=== PATIENT | male | born 1965 | race American Indian/Alaskan Native ===

== ENCOUNTER 2025-01-05 13:34 | Outpatient (CLI) | payer MEDICAID, SELFPAY ==
[2025-01-05 11:33] LABS: Estimated GFR 64.07 (mL/min/1.73m2)
== END 2025-01-05 13:35 | disposition home or self-care (01) ==
LOC: LBO 13:36
PROVIDERS: Visit Provider Radiology Radiation Oncology
DX: C09.9 Malignant neoplasm of tonsil, unspecified (principal)
CPT/HCPCS: 36415; 82565

== ENCOUNTER 2025-01-19 11:27 | Outpatient (CLI) | payer MEDICAID, SELFPAY ==
[2025-01-19 10:25] LABS: Abs Immature Grans 0.02 10^3/uL (0.0-0.06); HCT 47.7 % (40.0-50.0); HGB 16.4 g/dL (13.5-17.5); Immature Grans % 0.3 %; MCH 30.3 pg (27.0-33.0); MCHC 34.4 % (32.0-36.0); MCV 88 fL (80-95); MPV 11.4 fL (8.0-11.0); Platelet Count 161 10^3/uL (130-400); RBC 5.42 10^6/uL (4.36-5.78); RDW 12.4 % (11.8-14.1); RDW-SD 40.0 fL; WBC 5.83 10^3/uL (4.4-10.8)
[2025-01-19 10:37] LABS: Magnesium 2.3 mg/dL (1.8-2.4)
[2025-01-19 10:41] LABS: ALT 76 U/L (16-63); AST 35 U/L (15-37); Albumin 4.1 g/dL (3.4-5.0); Alkaline Phosphatase 129 U/L (46-116); Anion Gap 5.7 mmol/L (3-11); BUN 17 mg/dL (7-18); Bilirubin, Total 0.7 mg/dL (0.2-1.0); CO2 33.3 mmol/L (21.0-32.0); Calcium 9.7 mg/dL (8.5-10.1); Chloride 100 mmol/L (98-107); Estimated GFR 64.07 (mL/min/1.73m2); Glucose 123 mg/dL (74-106); Potassium 4.7 mmol/L (3.5-5.1); Sodium 139 mmol/L (136-145); Total Protein 7.8 g/dL (6.4-8.2)
== END 2025-01-19 11:28 | disposition home or self-care (01) ==
LOC: LBO 11:28
PROVIDERS: Visit Provider Internal Medicine Hematology
DX: C09.9 Malignant neoplasm of tonsil, unspecified (principal)
CPT/HCPCS: 36415; 80053; 83735; 85025

== ENCOUNTER 2025-01-26 12:36 | Outpatient (REF) | payer MEDICAID, SELFPAY ==
[2025-01-26 12:48] LABS: Abs Immature Grans 0.05 10^3/uL (0.0-0.06); HCT 46.7 % (40.0-50.0); HGB 16.5 g/dL (13.5-17.5); Immature Grans % 0.6 %; MCH 30.3 pg (27.0-33.0); MCHC 35.3 % (32.0-36.0); MCV 86 fL (80-95); MPV 12.5 fL (8.0-11.0); Platelet Count 177 10^3/uL (130-400); RBC 5.44 10^6/uL (4.36-5.78); RDW 12.3 % (11.8-14.1); RDW-SD 38.6 fL; WBC 7.88 10^3/uL (4.4-10.8)
[2025-01-26 13:12] LABS: ALT 94 U/L (16-63); AST 29 U/L (15-37); Albumin 4.0 g/dL (3.4-5.0); Alkaline Phosphatase 135 U/L (46-116); Anion Gap 9.4 mmol/L (3-11); BUN 21 mg/dL (7-18); Bilirubin, Total 0.9 mg/dL (0.2-1.0); CO2 28.6 mmol/L (21.0-32.0); Calcium 9.5 mg/dL (8.5-10.1); Chloride 100 mmol/L (98-107); Estimated GFR 78.30 (mL/min/1.73m2); Glucose 119 mg/dL (74-106); Magnesium 2.0 mg/dL (1.8-2.4); Potassium 3.7 mmol/L (3.5-5.1); Sodium 138 mmol/L (136-145); Total Protein 7.7 g/dL (6.4-8.2)
== END 2025-01-26 12:37 | disposition home or self-care (01) ==
LOC: LBN 12:36
PROVIDERS: Visit Provider Nurse Practitioner
DX: C09.9 Malignant neoplasm of tonsil, unspecified (principal); Z79.899 Other long term (current) drug therapy; K59.00 Constipation, unspecified; G89.3 Neoplasm related pain (acute) (chronic); R13.10 Dysphagia, unspecified
CPT/HCPCS: 80053; 83735; 85025

== ENCOUNTER 2025-03-02 03:47 | Outpatient (RCR) | payer MEDICAID, SELFPAY ==
[2025-02-03] MEDS: Normal Saline Flush 10 ML SYR IVP (09:19)
[2025-02-03 10:01] LABS: Abs Immature Grans 0.03 10^3/uL (0.0-0.06); HCT 42.5 % (40.0-50.0); HGB 14.8 g/dL (13.5-17.5); Immature Grans % 0.4 %; MCH 30.3 pg (27.0-33.0); MCHC 34.8 % (32.0-36.0); MCV 87 fL (80-95); MPV 12.5 fL (8.0-11.0); Platelet Count 137 10^3/uL (130-400); RBC 4.89 10^6/uL (4.36-5.78); RDW 12.2 % (11.8-14.1); RDW-SD 38.8 fL; WBC 8.03 10^3/uL (4.4-10.8)
[2025-02-03 10:24] LABS: ALT 113 U/L (16-63); AST 29 U/L (15-37); Albumin 3.7 g/dL (3.4-5.0); Alkaline Phosphatase 140 U/L (46-116); Anion Gap 7.3 mmol/L (3-11); BUN 15 mg/dL (7-18); Bilirubin, Total 0.9 mg/dL (0.2-1.0); CO2 29.7 mmol/L (21.0-32.0); Calcium 9.4 mg/dL (8.5-10.1); Chloride 101 mmol/L (98-107); Estimated GFR 78.30 (mL/min/1.73m2); Glucose 123 mg/dL (74-106); Magnesium 2.0 mg/dL (1.8-2.4); Potassium 4.0 mmol/L (3.5-5.1); Sodium 138 mmol/L (136-145); Total Protein 7.5 g/dL (6.4-8.2)
[2025-02-09] MEDS: Normal Saline Flush 10 ML SYR IVP (11:27)
[2025-02-09 11:32] LABS: Abs Immature Grans 0.02 10^3/uL (0.0-0.06); HCT 38.4 % (40.0-50.0); HGB 13.7 g/dL (13.5-17.5); Immature Grans % 0.4 %; MCH 30.6 pg (27.0-33.0); MCHC 35.7 % (32.0-36.0); MCV 86 fL (80-95); MPV 12.2 fL (8.0-11.0); Platelet Count 151 10^3/uL (130-400); RBC 4.48 10^6/uL (4.36-5.78); RDW 12.3 % (11.8-14.1); RDW-SD 37.8 fL; WBC 5.02 10^3/uL (4.4-10.8)
[2025-02-09 11:52] LABS: ALT 241 U/L (16-63); AST 58 U/L (15-37); Albumin 3.9 g/dL (3.4-5.0); Alkaline Phosphatase 135 U/L (46-116); Anion Gap 9.3 mmol/L (3-11); BUN 20 mg/dL (7-18); Bilirubin, Total 1.1 mg/dL (0.2-1.0); CO2 27.7 mmol/L (21.0-32.0); Calcium 9.4 mg/dL (8.5-10.1); Chloride 104 mmol/L (98-107); Estimated GFR 78.30 (mL/min/1.73m2); Glucose 112 mg/dL (74-106); Magnesium 2.0 mg/dL (1.8-2.4); Potassium 3.5 mmol/L (3.5-5.1); Sodium 141 mmol/L (136-145); Total Protein 7.5 g/dL (6.4-8.2)
[2025-02-11] MEDS: Normal Saline Flush 10 ML SYR IVP (10:20)
[2025-02-11 10:40] LABS: ALT 166 U/L (16-63); AST 39 U/L (15-37); Albumin 3.6 g/dL (3.4-5.0); Alkaline Phosphatase 134 U/L (46-116); Anion Gap 7.7 mmol/L (3-11); BUN 13 mg/dL (7-18); Bilirubin, Total 0.8 mg/dL (0.2-1.0); CO2 28.3 mmol/L (21.0-32.0); Calcium 9.1 mg/dL (8.5-10.1); Chloride 103 mmol/L (98-107); Estimated GFR 87.78 (mL/min/1.73m2); Glucose 185 mg/dL (74-106); Potassium 3.3 mmol/L (3.5-5.1); Sodium 139 mmol/L (136-145); Total Protein 7.0 g/dL (6.4-8.2)
[2025-02-11 12:41] LABS: Magnesium 1.9 mg/dL (1.8-2.4)
[2025-02-16] MEDS: Normal Saline Flush 10 ML SYR IVP (10:47)
[2025-02-16 11:23] LABS: Abs Immature Grans 0.02 10^3/uL (0.0-0.06); HCT 35.6 % (40.0-50.0); HGB 13.0 g/dL (13.5-17.5); Immature Grans % 0.4 %; MCH 31.6 pg (27.0-33.0); MCHC 36.5 % (32.0-36.0); MCV 86 fL (80-95); MPV 12.4 fL (8.0-11.0); Platelet Count 126 10^3/uL (130-400); RBC 4.12 10^6/uL (4.36-5.78); RDW 13.2 % (11.8-14.1); RDW-SD 38.6 fL; WBC 4.49 10^3/uL (4.4-10.8)
[2025-02-16 11:41] LABS: ALT 96 U/L (16-63); AST 26 U/L (15-37); Albumin 3.6 g/dL (3.4-5.0); Alkaline Phosphatase 142 U/L (46-116); Anion Gap 13.4 mmol/L (3-11); BUN 19 mg/dL (7-18); Bilirubin, Total 0.7 mg/dL (0.2-1.0); CO2 25.6 mmol/L (21.0-32.0); Calcium 9.5 mg/dL (8.5-10.1); Chloride 100 mmol/L (98-107); Estimated GFR 78.30 (mL/min/1.73m2); Glucose 226 mg/dL (74-106); Magnesium 1.9 mg/dL (1.8-2.4); Potassium 3.6 mmol/L (3.5-5.1); Sodium 139 mmol/L (136-145); Total Protein 7.3 g/dL (6.4-8.2)
[2025-02-23] MEDS: Normal Saline Flush 10 ML SYR IVP (10:38)
[2025-02-23 10:55] LABS: Abs Immature Grans 0.03 10^3/uL (0.0-0.06); HCT 39.0 % (40.0-50.0); HGB 14.0 g/dL (13.5-17.5); Immature Grans % 0.9 %; MCH 31.0 pg (27.0-33.0); MCHC 35.9 % (32.0-36.0); MCV 87 fL (80-95); MPV 12.2 fL (8.0-11.0); Platelet Count 126 10^3/uL (130-400); RBC 4.51 10^6/uL (4.36-5.78); RDW 13.6 % (11.8-14.1); RDW-SD 41.2 fL; WBC 3.37 10^3/uL (4.4-10.8)
[2025-02-23 11:22] LABS: ALT 384 U/L (16-63); AST 79 U/L (15-37); Albumin 3.7 g/dL (3.4-5.0); Alkaline Phosphatase 156 U/L (46-116); Anion Gap 9.0 mmol/L (3-11); BUN 24 mg/dL (7-18); Bilirubin, Total 1.0 mg/dL (0.2-1.0); CO2 28.0 mmol/L (21.0-32.0); Calcium 9.2 mg/dL (8.5-10.1); Chloride 98 mmol/L (98-107); Estimated GFR 78.30 (mL/min/1.73m2); Glucose 217 mg/dL (74-106); Magnesium 1.7 mg/dL (1.8-2.4); Potassium 3.4 mmol/L (3.5-5.1); Sodium 135 mmol/L (136-145); Total Protein 7.2 g/dL (6.4-8.2)
[2025-03-02 10:39] LABS: Abs Immature Grans 0.04 10^3/uL (0.0-0.06); HCT 35.7 % (40.0-50.0); HGB 12.6 g/dL (13.5-17.5); Immature Grans % 0.7 %; MCH 30.7 pg (27.0-33.0); MCHC 35.3 % (32.0-36.0); MCV 87 fL (80-95); MPV 11.7 fL (8.0-11.0); RBC 4.10 10^6/uL (4.36-5.78); RDW 14.9 % (11.8-14.1); RDW-SD 42.9 fL; WBC 6.05 10^3/uL (4.4-10.8)
[2025-03-02] MEDS: Normal Saline Flush 10 ML SYR IVP (10:49)
[2025-03-02 10:52] LABS: Platelet Count 94 10^3/uL (130-400)
[2025-03-02 11:08] LABS: ALT 384 U/L (16-63); AST 62 U/L (15-37); Albumin 3.5 g/dL (3.4-5.0); Alkaline Phosphatase 158 U/L (46-116); Anion Gap 7.5 mmol/L (3-11); BUN 22 mg/dL (7-18); Bilirubin, Total 1.1 mg/dL (0.2-1.0); CO2 30.5 mmol/L (21.0-32.0); Calcium 8.6 mg/dL (8.5-10.1); Chloride 100 mmol/L (98-107); Estimated GFR 87.78 (mL/min/1.73m2); Glucose 187 mg/dL (74-106); Magnesium 1.8 mg/dL (1.8-2.4); Potassium 3.6 mmol/L (3.5-5.1); Sodium 138 mmol/L (136-145); Total Protein 6.8 g/dL (6.4-8.2)
== END 2025-03-03 23:59 | disposition home or self-care (01) ==
LOC: INF 03:47
PROVIDERS: Visit Provider Nurse Practitioner
DX: C09.9 Malignant neoplasm of tonsil, unspecified (principal); Z79.899 Other long term (current) drug therapy; K59.00 Constipation, unspecified; G89.3 Neoplasm related pain (acute) (chronic); R13.0 Aphagia
CPT/HCPCS: 36591; 80053; 83735; 85025

== ENCOUNTER 2025-03-16 09:50 | Inpatient (IN) | payer MEDICAID, SELFPAY ==
[2025-03-16] VITALS (27 sets, daily range): BP systolic 94–138; BP diastolic 42–80; PULSE 74–105; RESP 12–26; TEMP 36.3–36.9; O2SAT 99–100
--- NOTE | 2025-03-16 09:45 | RT.EKG_ITS ---
APPROVED REPORT Exam: Resting ECG Reason for Exam: Seizure Patient Location: E HR:88 bpm ECG Measurements Heart Rate 88 AXIS IA 137 P 58 QRSd 77 QRS 57 QT 325 T 23 QTc 394 Conclusion Sinus rhythm...normal P axis, V-rate 60- 99 No Occlusion IN
--- NOTE | 2025-03-16 09:53 | W.ED.GENAD ---
Discharge Plan Disposition Patient Disposition: Admit to [facility] Discharge Details Clinical Impression: Nausea & vomiting, Hyperbilirubinemia, Elevated LFTs, Increased anion gap metabolic acidosis, Elevated BUN, Hypoalbuminemia, Convulsions Primary Care Provider: Unknown,Unknown ED Provider: Dk Dye [place] Meds and New Rx's Prescriptions: No Action bupropion HCl [Wellbutrin XL] 150 mg tablet extended release 24 hr 150 mg PO DAILY potassium chloride 20 mEq/15 mL liquid 20 meq PO DAILY Patient Comments: TAKE 15 ML ONCE DAILY BY PER G TUBE cholecalciferol (vitamin D3) [Pediatric D-Srinivas] 10 mcg/mL (400 unit/mL) drops 400 unit PO DAILY Patient Comments: USE 1 DROP VIA FEEDING TUBE DAILY amlodipine 5 mg tablet 5 mg PO DAILY Patient Comments: TAKE 1 TABLET BY MOUTH ONCE DAILY ibuprofen [IBU] 800 mg tablet 800 mg PO Q6H oxycodone 5 mg tablet 5 mg PO Q6H Patient Comments: TAKE 1 TABLET BY MOUTH EVERY 6 HOURS NEEDED FOR PAIN (FOR BREAKTHROUGH PAIN. TAKE BY MOUTH OR CRUSH AND ADMINISTER PER G-TUBE AND FLUSH.) ondansetron HCl 4 mg tablet 4 mg PO Q8H PRN Patient Comments: TAKE 1 TABLET BY MOUTH EVERY 8 HOURS NEEDED FOR NAUSEA atorvastatin 10 mg tablet 10 mg PO QPM Patient Comments: TAKE 1 TABLET BY MOUTH ONCE DAILY amitriptyline 10 mg tablet 25 mg PO HS Patient Comments: TAKE 2 TABLETS BY MOUTH ONCE DAILY AT BEDTIME prochlorperazine maleate 10 mg tablet 10 mg PO Q6H Patient Comments: TAKE 1 TABLET BY MOUTH EVERY 6 HOURS NEEDED Nurtec ODT 75 mg tablet,disintegrating 75 mg PO Q OTHER DAY pregabalin [Lyrica] 20 mg/mL solution 50 mg PO TID Patient Comments: TAKE 2 1/2 (ONE-HALF) ML THREE TIMES DAILY VIA FEEDING TUBE omeprazole 20 mg capsule,delayed release(DR/EC) 20 mg PO DAILY Patient Comments: TAKE 1 CAPSULE BY MOUTH ONCE DAILY prazosin 2 mg capsule 2 mg PO HS Patient Comments: TAKE 1 CAPSULE BY MOUTH IN THE EVENING aspirin [Adult Low Dose Aspirin] 81 mg PO DAILY HPI General Date/Time Provider Initiated Documentation: 03/16/25 09:53. HPI Narrative: MDM This is an uncomfortable appearing normothermic and not tachycardic 59-year-old male with history of head and neck cancer with tonic-clonic activity concerning for possibility of seizure versus dysrhythmia for which patient will undergo CT head and troponin testing in the emergency department. ECG showing narrow complex normal sinus rhythm at a rate of 88. Normal axis. Intervals within normal limits. No acute injury pattern. No prior for comparison. Patient has no pain out of proportion to suggest necrotizing soft tissue infection. He does have epigastric tenderness but is not a drinker however will obtain lipase to assess for pancreatitis. He also could have duodenitis given PEG tube. He is not septic so I did not draw blood cultures nor treat empirically with broad-spectrum antibiotics nor assess lactate. Given PEG tube my suspicion for mesenteric ischemia is low as I do not feel patient required assessment of lactate. He has no signs of surgical site infection at his peg tube at the moment. He has no rash to stomach to suggest zoster. No right upper quadrant tenderness to suggest acute cholecystitis. No right lower quadrant tenderness to suggest appendicitis. No pulsatile masses to suggest ruptured AAA. No shortness of breath to suggest PE so I did not feel that the patient required an angiogram of his chest. He had no loss of bowel or bladder control and no tongue biting so my suspicion was low for seizure. Nonetheless given history of head and neck cancer we will obtain a CT scan of his head and neck with IV contrast to assess for any metastatic disease. He has no focal neurological deficits to suggest acute CVA so I do not feel he would be a candidate for TNK. Will prophylax with antiseizure medications using 1.5 g levetiracetam. 11:53 AM Normal INR. Initial reassuring troponin. Comprehensive metabolic panel showing no KRYSTAL. Mildly elevated BUN mildly elevated anion gap but normal bicarbonate??not consistent with DKA. Mild hyperbilirubinemia slightly worse compared to prior. Mildly elevated LFTs improved compared to prior. Given likely need for hospitalization will defer acute hepatitis panel to inpatient team. Mild hypoalbuminemia. Normal calcium. Normal reassuring lipase. Very mild hypomagnesemia. CBC with normocytic anemia slightly worse compared to prior. Mild leukopenia worse compared to prior. Resolved thrombocytopenia. 1:41 PM Reassuring repeat troponin. CT scan of abdomen pelvis showed no acute abnormalities. PEG tube appears to be in acceptable position. Reassuring normal CT head. Patient did have an episode in the emergency department where he transiently became unresponsive for approximately 25 seconds. His eyes rolled to the back of his head. He had some upper extremity myoclonic jerking. He subsequently began following commands including squeezing hands. Given my low suspicion for seizure I did not feel that he required antiseizure medications. 3:15 PM Given his hypomagnesemia I added on a phosphate level to the assess for possibility of refeeding syndrome. I was in touch with physical therapy and they were planning on seeing the patient tomorrow. Will reach out to the hospitalist team for hospitalization request. 3:45 PM I was called to the patient's room. He had a subsequent episode of myoclonic jerking with his eyes rolled back in his stretcher. This lasted approximately 30 seconds. I ordered him 2 mg of lorazepam. Of note he has recently had an EEG. He was diagnosed with psychogenic nonepileptic seizure. 3:56 PM I was in touch with Dr. Nuñez who graciously agreed to accept the patient for hospitalization. Phosphate level within normal limits. HPI This is a male with a history of head and neck cancer presenting with abdominal pain, nausea, vomiting, and seizure. The patient was diagnosed with head and neck cancer 3 months ago and has been undergoing radiation therapy, with his last session scheduled for today. However, he presented with severe discomfort, including abdominal pain around his PEG tube, nausea, and vomiting. The pain is so intense that even slight touch near the PEG tube causes significant discomfort. His primary complaints are abdominal pain, nausea, and vomiting. He reports no chest pain or breathing difficulties. He was discharged from the hospital on 03/14/2025 after being admitted for severe abdominal pain. During his hospital stay, it was discovered that the tube connecting his stomach to the small intestine was inflamed, and he had low magnesium and potassium levels. He received IV fluids, Dilaudid, and magnesium supplements. A scope revealed multiple ulcers in his stomach, and he was advised to take omeprazole twice daily to manage acidity. However, upon discharge, he was only given Tylenol. His last feed was on 03/14/2025 while he was still in the hospital. Despite these symptoms, he was scheduled for radiation today. While assessing his condition, he experienced a tonic-clonic seizure, characterized by his eyes rolling back for 1 to 2 minutes, as observed by the staff. Upon arrival, he appeared alert with no significant postictal period. 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 His vital signs have remained stable throughout this period. Prior to today's episode, he felt lightheaded, weak, and dizzy. Exam General: Well-appearing in no acute distress speaking in complete sentences. Head: Normocephalic, atraumatic. Eye: Extraocular eye movements intact. No conjunctival injection. No scleral icterus. Ear, nose, mouth, throat: Grossly normal inspection. Normal voice, handling secretions normally. Neck: Trachea midline. Well-healing surgical scar right side of neck. Cardiovascular: Well-perfused distal extremities. Regular rate and rhythm. Respiratory: Nonlabored respiration. Clear lungs bilaterally. Gastrointestinal: Nondistended abdomen. PEG tube left upper quadrant. No signs of irritation or erythema at PEG tube site. Patient does have epigastric tenderness at site of tube insertion. No rebound. No guarding. Bilateral lower quadrants nontender no rebound no guarding. Musculoskeletal: No edema. Moving all 4 extremities spontaneously. Skin: Normal for age and race, grossly normal temperature and turgor. No acute rash. Neurologic: Alert and appropriate, no apparent acute deficits. GCS 15. Cranial nerves II through XII intact grossly. 5 out of 5 bilateral upper and lower extremity strength. Related Data Home Medications ?Medication ?Instructions ?Recorded ?Confirmed amitriptyline 10 mg tablet 25 mg PO HS 03/16/25 03/16/25 amlodipine 5 mg tablet 5 mg PO DAILY 03/16/25 03/16/25 aspirin 81 mg PO DAILY 03/16/25 03/16/25 atorvastatin 10 mg tablet 10 mg PO QPM 03/16/25 03/16/25 bupropion HCl 150 mg 24 hr tablet, 150 mg PO DAILY 03/16/25 03/16/25 extended release (Wellbutrin XL) cholecalciferol (vitamin D3) 10 400 unit PO DAILY 03/16/25 03/16/25 mcg/mL (400 unit/mL) oral drops (Pediatric D-Srinivas) ibuprofen 800 mg tablet (IBU) 800 mg PO Q6H 03/16/25 03/16/25 omeprazole 20 mg capsule,delayed 20 mg PO DAILY 03/16/25 03/16/25 release ondansetron HCl 4 mg tablet 4 mg PO Q8H PRN 03/16/25 03/16/25 oxycodone 5 mg tablet 5 mg PO Q6H 03/16/25 03/16/25 potassium chloride 20 mEq/15 mL 20 meq PO DAILY 03/16/25 03/16/25 oral liquid prazosin 2 mg capsule 2 mg PO HS 03/16/25 03/16/25 pregabalin 20 mg/mL oral solution 50 mg PO TID 03/16/25 03/16/25 (Lyrica) prochlorperazine maleate 10 mg 10 mg PO Q6H 03/16/25 03/16/25 tablet rimegepant 75 mg disintegrating 75 mg PO Q OTHER DAY 03/16/25 03/16/25 tablet (Nurtec ODT) Allergies Allergy/AdvReac Type Severity Reaction Status Date / Time morphine Allergy Severe Anaphylaxis Verified 03/16/25 11:06 ferro AdvReac Intermediate rash Verified 03/16/25 11:09 hydrocodone (From Vicodin) AdvReac Intermediate Nausea Verified 03/16/25 11:09 PFSH All Active Problems (Updated 03/16/25 @ 15:47 by Dk Dye MD) Convulsions (Acute) Hypoalbuminemia (Acute) Elevated BUN (Acute) Increased anion gap metabolic acidosis (Acute) Elevated LFTs (Acute) Hyperbilirubinemia (Acute) Nausea & vomiting (Acute) Social History Smoking/Tobacco Use Status: Never Smoking risk assessment performed?: Yes Alcohol Intake: never
--- NOTE | 2025-03-16 10:00 | DI.RAD_ITS ---
Exam(s) XR CHEST 2V PA LATERAL EXAM: XR CHEST 2V PA LATERAL CLINICAL HISTORY: Cough TECHNIQUE: 2D digital imaging was performed. Two views. COMPARISON: No exams were available for comparison FINDINGS: HEART: Normal size. Coronary artery stent. Aorta: Not dilated. PULMONARY VASCULATURE: Normal. MEDIASTINUM: Unremarkable. LUNGS: Clear. PLEURAL SPACE: No pleural effusion or pneumothorax. BONE:Unremarkable for age. SOFT TISSUES: Port over right upper chest. IMPRESSION: No acute abnormality. DATA REPOSITORY: RADIATION DOSE DELIVERED:
[2025-03-16] MEDS: Ondansetron 4 MG/2 ML VIAL IVP (10:50)
[2025-03-16 11:12] LABS: Abs Immature Grans 0.04 10^3/uL (0.0-0.06); HCT 33.2 % (40.0-50.0); HGB 11.2 g/dL (13.5-17.5); Immature Grans % 1.0 %; MCH 30.0 pg (27.0-33.0); MCHC 33.7 % (32.0-36.0); MCV 89 fL (80-95); MPV 11.8 fL (8.0-11.0); Platelet Count 139 10^3/uL (130-400); RBC 3.73 10^6/uL (4.36-5.78); RDW 16.8 % (11.8-14.1); RDW-SD 53.1 fL; WBC 3.96 10^3/uL (4.4-10.8)
[2025-03-16] MEDS: HYDROmorphone 2 MG/ML SYR 0.5 MG IVP ×3 (11:23→19:21)
[2025-03-16] MEDS: Normal Saline 500 ML IV (11:25)
[2025-03-16 11:31] LABS: INR 1.1 (0.9-1.1); Prothrombin Time 10.9 sec (9.1-11.1)
[2025-03-16 11:33] LABS: ALT 139 U/L (16-63); AST 52 U/L (15-37); Albumin 3.3 g/dL (3.4-5.0); Alkaline Phosphatase 148 U/L (46-116); Anion Gap 14.7 mmol/L (3-11); BUN 21 mg/dL (7-18); Bilirubin, Total 1.7 mg/dL (0.2-1.0); CO2 23.3 mmol/L (21.0-32.0); Calcium 9.2 mg/dL (8.5-10.1); Chloride 98 mmol/L (98-107); Estimated GFR 70.53 (mL/min/1.73m2); Glucose 149 mg/dL (74-106); Lipase 17 U/L (<78); Magnesium 1.7 mg/dL (1.8-2.4); Potassium 3.9 mmol/L (3.5-5.1); Sodium 136 mmol/L (136-145); Total Protein 7.2 g/dL (6.4-8.2); Troponin I 5 ng/L (<or=76)
[2025-03-16] MEDS: Normal Saline - Diluent 50 ML VIAL IJ (12:47)
[2025-03-16] MEDS: Omnipaque 350 MG/ML 100 ML BTL IJ (12:47)
[2025-03-16] MEDS: Normal Saline Flush 10 ML SYR IVP ×2 (12:48→19:20)
--- NOTE | 2025-03-16 13:05 | DI.CT_ITS ---
Exam(s) CT HEAD WO/W EXAM: CT HEAD WO/W CLINICAL HISTORY: Tonic-clonic activity malignancy. TECHNIQUE: Imaging Protocol: Axial computed tomography images with coronal and sagittal reformatted images were created and reviewed. CONTRAST MATERIAL: Intravenous: Omnipaque 350 Contrast volume:75 ml COMPARISON: No exams were available for comparison FINDINGS: Ventricles and Extra axial spaces: Normal in size and morphology for the patient's age. Hemorrhage: None. Cerebral parenchyma: Normal. Enhancement: No suspicious enhancement. Midline shift: None. Brainstem/Cerebellum: Normal. Calvarium: Normal. Visualized Paranasal sinuses/Mastoids: Clear. IMPRESSION: Normal CT scan of the head. RADIATION DOSE DELIVERED: 859.27 mGy.cm Total DLP DATA REPOSITORY: All CT scans at this facility are submitted to the National Radiology Data Registry (NRDR) Dose Index Registry (DIR) with the [employer] ([employer]). RADIATION OPTIMIZATION: All CT scans at this facility use at least one of these dose optimization techniques: automated exposure control; mA and/or kV adjustment per patient size (includes targeted exams where dose is matched to clinical indication); or iterative reconstruction.
[2025-03-16 13:10] LABS: Troponin I 6 ng/L (<or=76)
--- NOTE | 2025-03-16 13:15 | DI.CT_ITS ---
Exam(s) CT ABDOMEN PELVIS W EXAM: CT ABDOMEN PELVIS W CLINICAL HISTORY: Epigastric pain. TECHNIQUE: Imaging Protocol: Axial computed tomography images with coronal and sagittal reformatted images were created and reviewed CONTRAST MATERIAL: Intravenous: Omnipaque 350 Contrast volume:75 ml Oral: no COMPARISON: No exams were available for comparison FINDINGS: ABDOMEN and PELVIS: Lung Bases: No acute findings. Liver: Normal density. No suspicious mass. Gallbladder and biliary tract: No few small stones are present in the dependent portion. No wall thickening or pericholecystic fluid. No biliary dilation. Pancreas: Somewhat atrophic. Normal density. No abnormal calcifications or inflammatory process. No evidence of mass. Spleen: Normal. Kidneys: Normal size, contour and axis. No radiodense stones. No obstructive uropathy. No suspicious masses seen. Adrenal glands: No masses seen. Vasculature: Abdominal aorta non-dilated. Soft tissues: Unremarkable. Bladder: No gross wall thickening. No calculi.No focal mass. Bowel: Peg tube. No obstruction. No bowel wall thickening. Appendix normal. Peritoneal cavity: No ascites. No focal collection. No mesenteric inflammatory response. No free air. Bones: Degenerative changes in the lower lumbar spine and hips. Reproductive organs: The prostate is enlarged and impresses on the base of the bladder. Lymph nodes: No pathologically enlarged lymph nodes. IMPRESSION:: No acute abnormality in the abdomen or pelvis. A PEG tube is in place. RADIATION DOSE DELIVERED: 556.47mGy.cm Total DLP DATA REPOSITORY: All CT scans at this facility are submitted to the National Radiology Data Registry (NRDR) Dose Index Registry (DIR) with the [employer] ([employer]). RADIATION OPTIMIZATION: All CT scans at this facility use at least one of these dose optimization techniques: automated exposure control; mA and/or kV adjustment per patient size (includes targeted exams where dose is matched to clinical indication); or iterative reconstruction.
[2025-03-16] MEDS: Famotidine 20 MG/2 ML VIAL 40 MG IVP (14:46)
[2025-03-16 15:27] LABS: Lab Add On Test DONE
[2025-03-16] MEDS: MAGNESIUM SULFATE 2 GM/50 ML BAG IVINF (15:51)
[2025-03-16] MEDS: LORazepam 20 MG/10 ML VIAL IVP (15:51)
[2025-03-16] MEDS: Pregabalin 50 MG CAP PO (16:12)
[2025-03-16] MEDS: oxyCODONE 5 MG TAB PO (16:12)
--- NOTE | 2025-03-16 16:22 | W.PM.HP.N ---
Date of service: 03/16/25 Time of Service: 16:00 Assessment and Plan Assessment and plan (1) Convulsions: Status: Acute Assessment and plan: Two episodes witnessed in ED without postictal state, no loss of urine Given benzodiazepines after these episodes He is also having all-body spasms with exacerbation of pain in his mouth and jaw, which are partially relieved with lorazepam No neurology consult at this time; [facility] [place] [facility] discharge summary Continue home amitriptyline (for headaches?), prazosin, pregabalin, rimegepant (bring from home?) PRN PO lorazepam, PRN oxycodone Continue levetiracetam (2) History of psychogenic nonepileptic seizure: Status: Acute Assessment and plan: 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 Patient experienced seizures after this event Neurology evaluations with convulsive episodes captured on EEG without epileptiforms He was started (restarted?) on levetiracetam at [facility] during Mar 09 hospitalization Continuing levetiracetam Holding bupropion, consider discontinuing as it lowers seizure threshold (3) Nausea & vomiting: Status: Acute Assessment and plan: Continue PRN ondansetron, prochlorperazine (4) Hypomagnesemia: Status: Acute Assessment and plan: Repleted in ED, will recheck (5) Severe protein-calorie malnutrition: Status: Acute Assessment and plan: Consulted nutrition, started tube feeds per recommendations (6) PEG (percutaneous endoscopic gastrostomy) status: Status: Acute Assessment and plan: Tube care Consider lidocaine gel for pain (7) Tonsillar cancer: Status: Acute Assessment and plan: Palliative care consult Physical therapy consult History of Present Illness History of Present Illness Chief Complaint: tonic-clonic activity Narrative: Bright Schroeder) is a 59 year old man presenting March 16 with convulsions he describes as tonic-clonic seizures, as well as spasming pain from his active tonsillar cancer, and nausea/vomiting. He has a PEG tube to assist with nutrition; he is able to swallow water and pills and some soft foods. He was hospitalized at [facility] Mar 09 for malnutrition, duodenitis, possible refeeding syndrome; his convulsions were diagnosed as psychogenic nonepileptic seizures. Patient decided today to forgo any further oncology treatment for his tonsillar cancer. He was due to start radiation today. 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 He reports that he has had seizures since he fell 10 feet onto his head 5 years ago; he was [place] [facility] [place] had him on EEG during episodes with no epileptiforms. Patient reports that he came in to the ED for relief of seizures and relief of pain. In the ED he was tachycardic 94 - 105, vitals otherwise unremarkable. He had 2 episodes of [id number] convulsions in the ED. EKG with NSR. CXR, head CT unremarkable. CT abdomen pelvis showing PEG in place. CBC showing mild normocytic anemia. Mildly elevated glucose 149. Low magnesium 1.7. Mild bilirubin elevation 1.7. Mild transaminitis, ALT > AST, less than 3x normal. Negative troponin. Lipase unremarkable. He was given ondansetron, hydromorphone, levetiracetam, NS 500 ml bolus, famotidine, magnesium, lorazepam, oxycodone, pregabalin. PMH includes tonsillar cancer s/p cisplatin therapy, PEG tube placement, TBI, migraines, anxiety, depression, insomnia, GERD, asthma, HLD, osteoarthritis PFSH All Active Problems (Updated 03/17/25 @ 03:41 by Portillo Nuñez MD) Severe protein-calorie malnutrition (Acute) History of psychogenic nonepileptic seizure (Acute) Tonsillar cancer (Acute) PEG (percutaneous endoscopic gastrostomy) status (Acute) Hypomagnesemia (Acute) Convulsions (Acute) Hypoalbuminemia (Acute) Elevated BUN (Acute) Increased anion gap metabolic acidosis (Acute) Elevated LFTs (Acute) Hyperbilirubinemia (Acute) Nausea & vomiting (Acute) Social History Smoking/Tobacco Use Status: Never Smoking risk assessment performed?: Yes Alcohol Intake: never Meds Allergies and Home Medications Allergies Allergy/AdvReac Type Severity Reaction Status Date / Time morphine Allergy Severe Anaphylaxis Verified 03/16/25 11:06 ferro AdvReac Intermediate rash Verified 03/16/25 11:09 hydrocodone (From Vicodin) AdvReac Intermediate Nausea Verified 03/16/25 11:09 Home Medications ?Medication ?Instructions ?Recorded ?Confirmed ?Type amitriptyline 10 mg tablet 25 mg PO HS 03/16/25 03/16/25 History amlodipine 5 mg tablet 5 mg PO DAILY 03/16/25 03/16/25 History aspirin 81 mg PO DAILY 03/16/25 03/16/25 History atorvastatin 10 mg tablet 10 mg PO QPM 03/16/25 03/16/25 History bupropion HCl 150 mg 24 hr tablet, 150 mg PO DAILY 03/16/25 03/16/25 History extended release (Wellbutrin XL) cholecalciferol (vitamin D3) 10 400 unit PO DAILY 03/16/25 03/16/25 History mcg/mL (400 unit/mL) oral drops (Pediatric D-Srinivas) ibuprofen 800 mg tablet (IBU) 800 mg PO Q6H 03/16/25 03/16/25 History omeprazole 20 mg capsule,delayed 20 mg PO DAILY 03/16/25 03/16/25 History release ondansetron HCl 4 mg tablet 4 mg PO Q8H PRN 03/16/25 03/16/25 History oxycodone 5 mg tablet 5 mg PO Q6H 03/16/25 03/16/25 History potassium chloride 20 mEq/15 mL 20 meq PO DAILY 03/16/25 03/16/25 History oral liquid prazosin 2 mg capsule 2 mg PO HS 03/16/25 03/16/25 History pregabalin 20 mg/mL oral solution 50 mg PO TID 03/16/25 03/16/25 History (Lyrica) prochlorperazine maleate 10 mg 10 mg PO Q6H 03/16/25 03/16/25 History tablet rimegepant 75 mg disintegrating 75 mg PO Q OTHER DAY 03/16/25 03/16/25 History tablet (Nurtec ODT) Exam Narrative Exam Narrative: General: This is a pleasant man, intermittently in distress due to convulsions with throat pain HEENT: Normocephalic. Right neck surgical incision site, well-healed. CV: RRR Resp: CTAB Abd: soft, NTND. PEG at LUQ, site clean and dry, mildly tender. MSK: voluntary motion x4 Neuro: awake, alert, no focal deficits Results Labs 03/16/25 10:50 03/16/25 10:50 Labs: Laboratory Results - last 24 hr 03/16/25 03/16/25 03/16/25 10:50 11:10 12:44 WBC 3.96 L RBC 3.73 L Hgb 11.2 L Hct 33.2 L MCV 89 MCH 30.0 MCHC 33.7 RDW 16.8 H Plt Count 139 MPV 11.8 H Immature Gran % 1.0 Neutrophils % 71.4 Lymphocytes % 17.4 Monocytes % 9.6 Eosinophils % 0.3 Basophils % 0.3 Nucleated RBC % 0.0 Absolute Neutrophils 2.83 Absolute Lymphocytes 0.69 L Absolute Monocytes 0.38 Absolute Eosinophils 0.01 Absolute Basophils 0.01 PT 10.9 INR 1.1 Sodium 136 Potassium 3.9 Chloride 98 Carbon Dioxide 23.3 Anion Gap 14.7 H BUN 21 H Creatinine 1.2 Est GFR (CKD-EPI 2020) 70.53 Glucose 149 H Calcium 9.2 Phosphorus 2.7 Magnesium 1.7 L Total Bilirubin 1.7 H AST 52 H ALT 139 H Alkaline Phosphatase 148 H Troponin I 5 6 Total Protein 7.2 Albumin 3.3 L Lipase 17 Add-On Test Request DONE ABO/Rh A Positive Antibody Screen NEGATIVE Last Vital Signs Temp 36.9 C 03/16/25 09:56 Pulse 83 03/16/25 14:31 Resp 23 03/16/25 14:01 BP 121/70 03/16/25 14:31 Pulse Ox 100 03/16/25 14:31 Time Spent Time spent with Patient: 40-54 minutes Time was spent: preparing to see the patient(eg.review tests), obtaining and/or reviewing separately otained hiistory, ordering medications,tests, procedures, referring, communicating with other health child care center assistant director, indepentently interpreting results, counseling the patient and care coordination
--- NOTE | 2025-03-16 18:51 | NUR.NOTE ---
Nursing Note: Pt on seizure precautions, consent to 4 bedrails up
--- NOTE | 2025-03-16 18:59 | W.PC.ACHO ---
Registration Status: ADM IN Primary Language: Preferred Language: ED Information & Data Chief Complaint Abd Prob 03/16/25 11:41 Chief Complaint Abd Prob 03/16/25 09:53 Other Complaint Seizure 03/16/25 09:53 Triage Note recent dx of head and neck 03/16/25 09:53 cancer, went to radiation this am not feeling well. n/ v over the weekend. had seizure this am at clinic. has hx of seizure. pain around peg tube since this weekend as well Most Recent Vital Signs Temperature 36.3 C L 03/16/25 18:40 Temperature Source Tympanic 03/16/25 18:40 Pulse 94 H 03/16/25 18:40 Pulse 90 03/16/25 18:00 Respiratory Rate 16 03/16/25 18:40 Blood Pressure 122/80 03/16/25 18:40 Blood Pressure Mean 94 03/16/25 18:40 Pulse Oximetry 100 03/16/25 18:40 Oxygen Delivery Method Room Air 03/16/25 18:40 Oxygen Flow Rate 0 03/16/25 18:40 Pain Level 10 03/16/25 13:48 Allergies morphine Allergy (Severe, Verified 03/16/25 11:06) Anaphylaxis ferro Adverse Reaction (Intermediate, Verified 03/16/25 11:09) rash hydrocodone (From Vicodin) Adverse Reaction (Intermediate, Verified 03/16/25 11:09) Nausea Precautions Isolation Standard precaution 03/16/25 11:41 Active Medications Generic Name Dose Route Start Last Admin Trade Name Freq PRN Reason Stop Dose Admin Iohexol 100 ml 03/16/25 13:00 03/16/25 12:47 Omnipaque 350 Mg/Ml 100 Ml Btl IJ 04/15/25 23:59 100 ml DIRECTED ILA Administration Sodium Chloride 0 ml 03/16/25 12:46 03/16/25 12:48 Normal Saline Flush 10 Ml Syr IVP 10 ml PRN PRN Administration Sodium Chloride 50 ml 03/16/25 13:00 03/16/25 12:47 Normal Saline - Diluent 50 Ml Vial IJ 50 ml DIRECTED ILA Administration IV IV Catheter Type [Right Saline Lock Antecubital] IV Catheter Type [Right] Saline Lock IV Catheter Gauge [Right 18 Antecubital] Diet Orders Category Date Time Status Regular/Normal [DIET] Nutrition 03/16/25 Dinner Active Tube Feeding [DIET] Nutrition 03/17/25 Breakfast Ordered Diagnostics 03/16/25 03/16/25 03/16/25 Range/Units 12:44 11:10 10:50 WBC 3.96 L (4.4-10.8) 10^3/uL RBC 3.73 L (4.36-5.78) 10^6/uL Hgb 11.2 L (13.5-17.5) g/dL Hct 33.2 L (40.0-50.0) % MCV 89 (80-95) fL MCH 30.0 (27.0-33.0) pg MCHC 33.7 (32.0-36.0) % RDW 16.8 H (11.8-14.1) % Plt Count 139 (130-400) 10^3/uL MPV 11.8 H (8.0-11.0) fL Immature Gran % 1.0 % Neutrophils % 71.4 % Lymphocytes % 17.4 % Monocytes % 9.6 % Eosinophils % 0.3 % Basophils % 0.3 % Nucleated RBC % 0.0 (0.0-0.3) % Absolute Neutrophils 2.83 (1.2-6.7) 10^3/uL Absolute Lymphocytes 0.69 L (1.2-3.4) 10^3/uL Absolute Monocytes 0.38 (0.1-0.8) 10^3/uL Absolute Eosinophils 0.01 (0.0-0.7) 10^3/uL Absolute Basophils 0.01 (0.0-0.2) 10^3/uL PT 10.9 (9.1-11.1) sec INR 1.1 (0.9-1.1) Sodium 136 (136-145) mmol/L Potassium 3.9 (3.5-5.1) mmol/L Chloride 98 (98-107) mmol/L Carbon Dioxide 23.3 (21.0-32.0) mmol/L Anion Gap 14.7 H (3-11) mmol/L BUN 21 H (7-18) mg/dL Creatinine 1.2 (0.70-1.30) mg/dL Est GFR (CKD-EPI 2020) 70.53 (mL/min/1.73m2) Glucose 149 H (74-106) mg/dL Calcium 9.2 (8.5-10.1) mg/dL Phosphorus 2.7 (2.6-4.7) mg/dL Magnesium 1.7 L (1.8-2.4) mg/dL Total Bilirubin 1.7 H (0.2-1.0) mg/dL AST 52 H (15-37) U/L ALT 139 H (16-63) U/L Alkaline Phosphatase 148 H (46-116) U/L Troponin I 6 5 (<or=76) ng/L Total Protein 7.2 (6.4-8.2) g/dL Albumin 3.3 L (3.4-5.0) g/dL Lipase 17 (<78) U/L Add-On Test Request DONE ABO/Rh A Positive Antibody Screen NEGATIVE Intake and Output - 24 Hour Total 03/16/25 09:47 thru 03/16/25 18:42 Intake Total 695 Balance 695 Weight 86.9 kg Intake: IV 695 Falls Risk Assessment History of Falls No History 03/16/25 11:42 Fall Total Score 0 03/16/25 11:42 Level of Risk Standard/Low Risk 03/16/25 11:42 Problems Hypoalbuminemia (Acute) Elevated BUN (Acute) Increased anion gap metabolic acidosis (Acute) Elevated LFTs (Acute) Hyperbilirubinemia (Acute) Nausea & vomiting (Acute) Notes 03/16/25 18:51 Nursing Notes by Poly Cage Nursing Note: Pt on seizure precautions, consent to 4 bedrails up Initialized on 03/16/25 18:51 - END OF NOTE v v v v v v v v v Sending and/or Receiving Nurses: Please use comment section below to note any information pertinent to the patient hand-off not included above. Information / Comments: Page was not recieved for admission. Report called at 18:13. Report received from: JERRICA Willson. ED
[2025-03-16] MEDS: Atorvastatin 10 MG TAB PO (20:22)
[2025-03-16] MEDS: Amitriptyline 10 MG TAB 25 MG PO (20:22)
[2025-03-16] MEDS: Pregabalin 25 MG CAP 50 MG PO (20:22)
[2025-03-16] MEDS: Prazosin 2 MG CAP PO (21:05)
[2025-03-16] MEDS: levETIRAcetam 500 MG TAB 1500 MG PO (21:05)
[2025-03-17] VITALS (7 sets, daily range): BP systolic 77–111; BP diastolic 54–71; PULSE 99–110; RESP 16–22; TEMP 35.8–37.7; O2SAT 94–99
[2025-03-17] MEDS: oxyCODONE 5 MG TAB PO ×4 (05:33→23:57)
[2025-03-17] MEDS: HYDROmorphone 2 MG/ML SYR 0.5 MG IVP ×4 (06:52→20:19)
[2025-03-17 06:56] LABS: HCT 25.4 % (40.0-50.0); MCH 31.0 pg (27.0-33.0); MCHC 35.4 % (32.0-36.0); MCV 88 fL (80-95); MPV 11.4 fL (8.0-11.0); Platelet Count 111 10^3/uL (130-400); RBC 2.90 10^6/uL (4.36-5.78); RDW 16.4 % (11.8-14.1); RDW-SD 51.9 fL; WBC 3.12 10^3/uL (4.4-10.8)
[2025-03-17 07:12] LABS: HGB 9.0 g/dL (13.5-17.5)
[2025-03-17 07:32] LABS: ALT 119 U/L (16-63); AST 41 U/L (15-37); Albumin 2.5 g/dL (3.4-5.0); Alkaline Phosphatase 118 U/L (46-116); Anion Gap 9.5 mmol/L (3-11); BUN 18 mg/dL (7-18); Bilirubin, Total 1.2 mg/dL (0.2-1.0); CO2 24.5 mmol/L (21.0-32.0); Calcium 8.4 mg/dL (8.5-10.1); Chloride 101 mmol/L (98-107); Estimated GFR 87.78 (mL/min/1.73m2); Glucose 132 mg/dL (74-106); Magnesium 1.8 mg/dL (1.8-2.4); Potassium 3.6 mmol/L (3.5-5.1); Sodium 135 mmol/L (136-145); Total Protein 5.6 g/dL (6.4-8.2)
[2025-03-17] MEDS: Omeprazole 20 MG CAPCR PO (08:44)
[2025-03-17] MEDS: levETIRAcetam 500 MG TAB 1500 MG PO ×2 (08:44→20:18)
[2025-03-17] MEDS: Pregabalin 25 MG CAP 50 MG PO ×3 (08:44→20:17)
[2025-03-17] MEDS: amLODIPine 5 MG TAB PO (08:44)
[2025-03-17] MEDS: Aspirin 81 MG CHEW PO (08:44)
[2025-03-17] MEDS: Normal Saline Flush 10 ML SYR IVP ×4 (08:45→20:20)
--- NOTE | 2025-03-17 08:50 | INITIAL_ITS ---
Date of service: 03/17/25 Time of Service: 08:50 Care Management Initial Assmt Initial Assessment Reason for Hospitalization: seizures Functional Status/Living Situation Patient Presentation: Mae was sitting up in bed when CM met with him. He was pleasant in manner and agreeable to conversation. He was admitted on 03/16/25 with seizures. Mae also has tonsilar cancer for which he reported he has just completed a course of chemotherapy and radiation. He has a PEG tube which has been causing him pain. Today the surgeon saw Mae and removed and reinserted the G tube at the [facility]. Following the procedure he had imaging to assess its placement. Mae lives alone in a single family home in [facility]. He has one son and one grandchild. Mae was employed by [employer] in [place] but has been out on [employer] for the past year. He is independent at baseline and does not receive any services at home. Town of Residence: [place] Resides with: Alone Natural Supports: son Employment Status: Other (W/C) Instrumental Activities of Daily Living (ADLs): Independent Medications Medication Management: No Issues/Barriers identified Advance Directives Advance Directives: Do you have an Advance Directive: N , 09:57 AD On File at [facility]: N 01/05/25, 10:12 Date Asked 03/16/25 03/16/25, 03:19 AD Date Reviewed COLST On File at [facility] COLST Date Scanned Code Status Resuscitation Status Full Code Portal Pt does not currently have a portal and education provided: Yes Insurance Coverage/Financial Issues Insurance: Medicaid Care Team Visit Care Team Role Provider Type Na May APRN MD [facility] STAFF PHYSICIAN Unknown Unknown Primary Care Provider STAFF PHYSICIAN InPatient Everett Salinas Other Providers OTHER Dk Dye MD Emergency Provider [facility] STAFF PHYSICIAN Portillo Nuñez MD Admit Provider [facility] STAFF PHYSICIAN Attending Provider Discharge Potential Discharge Needs: PCP F/U Appt and Other (Oncology) Anticipated Barriers to Discharge: None Identified Patient/Family Education Needs: Review discharge instructions, discuss Ask Me Three Transportation: Private vehicle Plan: Anticipate Bright will be discharged home with no new services. He will follow up with his Oncologist, PCP and plan of care and transport with marry. CM will follow and continue to support discharge planning efforts. Social Determinants of Health Screening Social Determinants of health last assessed in clinic: 03/18/25 Will the Patient Participate in the Screening?: Yes Do you worry about having a steady place to live?: no Problems where you live: no known problems In the past 12 months, have you had to go without electric, gas, oil or water in your home?: no 1. Within the past 12 months, we worried whether our food would run out before we got money to buy more.: Never true 2. Within the past 12 months, the food we bought just didn't last and we didn't have money to get more.: Never true Has lack of transportation kept you from medical appointments or from doing things needed for daily living?: no Has anyone in your life made you feel unsafe or unsupported?: no How hard is it for you to pay for the very basics like food, housing, medical care, and heating? Would you say it is:: Not hard at all Do you want help finding or keeping work or a job?: I do not need or want help If for any reason you need help with day-to-day activities such as bathing, preparing meals, shopping, managing finances, etc., do you get the help you need?: I could use a little more help How often do you feel lonely or isolated from those around you?: Never Do you speak a language other than Korean at home?: Yes Does the patient want assistance with any of the above?: No Health Related Social Needs Health related social needs: problems with daily activities (Z73.9) and education (Z55.6) Health related social needs details: N/A [facility] All Active Problems (Updated 03/17/25 @ 03:41 by Portillo Nuñez MD) Severe protein-calorie malnutrition (Acute) History of psychogenic nonepileptic seizure (Acute) Tonsillar cancer (Acute) PEG (percutaneous endoscopic gastrostomy) status (Acute) Hypomagnesemia (Acute) Convulsions (Acute) Hypoalbuminemia (Acute) Elevated BUN (Acute) Increased anion gap metabolic acidosis (Acute) Elevated LFTs (Acute) Hyperbilirubinemia (Acute) Nausea & vomiting (Acute) Social History Smoking/Tobacco Use Status: Never Smoking risk assessment performed?: Yes Alcohol Intake: never
--- NOTE | 2025-03-17 15:30 | W.PM.PROGNOT ---
Date of Service Date of service: 03/17/25 Time of Service: 15:30 Assessment and Plan Assessment and plan (1) Convulsions: Status: Acute Assessment and plan: Witnessed episodes X2 in ED without post-ictal state, no loss of urine or bowels- No further occurences Given benzodiazepines after these episodes- jordana continue PRN oral lorazepam Pain exacerbation with all-body spasms with exacerbation of pain in his mouth and jaw, which are partially relieved with lorazepam -PRN oxycodone ( also on home med list) - Consider PRN hydromorphone for bedside procedures or intractable pain No neurology consult at this time; [facility] [place] in [facility] discharge summary -Patient reporting EEG and work-up w/o conclusive findings and f/u with neurology innext month On home amitriptyline , prazosin, pregabalin, rimegepant Continue levetiracetam (2) History of psychogenic nonepileptic seizure: Status: Acute Assessment and plan: 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 Patient experienced seizures after this event Neurology evaluations with convulsive episodes captured on EEG without epileptiforms He was started (restarted?) on levetiracetam at [facility] during Mar 09- hospitalization Continuing levetiracetam Holding bupropion, consider discontinuing as it lowers seizure threshold (3) Nausea & vomiting: Status: Acute Assessment and plan: Continue PRN ondansetron, prochlorperazine (4) Hypomagnesemia: Status: Acute Assessment and plan: Repleted in ED, will recheck (5) Severe protein-calorie malnutrition: Status: Acute Assessment and plan: Ongoing nutrition consult , started tube feeds per recommendations and as below (6) PEG (percutaneous endoscopic gastrostomy) status: Status: Acute Assessment and plan: Tube care Unable to flush w/o excruciating pain - no pertinent findings on imaging Surgical consultation : Dr Jane : discussion for PEG balloon displacment and readjustment - radiology imaging with gastrografin to confirm placement before using No appearance of infection at site Feeding on hold - resume as soon as possible (7) Tonsillar cancer: Status: Acute Assessment and plan: Palliative care consult pending Physical therapy consult pending Discussed with Dr. Salazar Subjective Subjective Patient reports: still having pain, tolerating liquids well, voiding w/o difficulty, no bowel movement (since sunday), nausea, vomiting (report blood in emesis- reporting source as malignancy in throat tonsil CA ), afebrile and other (Reporting aura pre-seizures and only having them, when acut econditions develops as per Hx); denies tolerating a regular diet (head and neck CA - on tube feeding- G tube exquisitely painful with flushing ), diarrhea or shortness of breath Exam Narrative Exam Narrative: Alert and oriented X4, normocephalic, non-icteric sclera neurologically intact, unlabored breathing, clear lungs, S1 S2 regular, PPPX4, abdomen is non-distended, soft tender to epigastrum and LUQ, PEG tube insertion site with minmimal serosanguinous drainage, no marked erythema, moves all 4 ext., seizure pads on bed Objective Last Vital Signs Temp 37.7 C H 03/17/25 11:04 Pulse 108 H 03/17/25 11:04 Resp 16 03/17/25 11:04 BP 111/71 03/17/25 11:04 Pulse Ox 99 03/17/25 11:04 Laboratory Results - last 24 hr 03/16/25 03/17/25 12:44 06:39 WBC 3.12 L RBC 2.90 L Hgb 9.0 L D Hct 25.4 L MCV 88 MCH 31.0 MCHC 35.4 RDW 16.4 H Plt Count 111 L MPV 11.4 H Sodium 135 L Potassium 3.6 Chloride 101 Carbon Dioxide 24.5 Anion Gap 9.5 BUN 18 Creatinine 1.0 Est GFR (CKD-EPI 2020) 87.78 Glucose 132 H Calcium 8.4 L Phosphorus 2.7 Magnesium 1.8 Total Bilirubin 1.2 H AST 41 H ALT 119 H Alkaline Phosphatase 118 H Total Protein 5.6 L Albumin 2.5 L Time Spent with Patient Time Spent with Patient: >50 minutes Time was spent: preparing to see the patient(eg.review tests), obtaining and/or reviewing separately otained hiistory, ordering medications,tests, procedures, referring, communicating with other health child care team lead, indepentently interpreting results, counseling the patient, care coordination and other
--- NOTE | 2025-03-17 16:52 | W.SURGCON ---
Date of service: 03/17/25 Time of Service: 16:53 Assessment and Plan Assessment and plan (1) PEG (percutaneous endoscopic gastrostomy) status: Status: Acute Assessment and plan: Patient is a 59-year-old male admitted to the medicine service for tonic-clonic seizures as well as abdominal pain, nausea, and vomiting. He notes that the PEG tube was placed 3 months ago at [facility] given his history of tonsillar cancer while he underwent radiation and chemotherapy. He states that he has completed his treatment at this time. He denies difficulty swallowing, but does endorse pain in his mouth which precludes him from eating. He is able to swallow liquids and pills and some soft foods. He has been using his PEG tube without difficulty for tube feeds to maintain his nutrition. On exam today he is afebrile and hemodynamically stable. His abdomen has tenderness to palpation isolated to the gastrostomy tube site. There is no surrounding erythema and minimal expected drainage from the gastrostomy tube site. He has no evidence of diffuse peritonitis. His imaging from the time of admission yesterday evening was reviewed and from my interpretation there is concern that the gastrostomy tube has retracted and may be in an inappropriate position which is causing inability to flush the tube and pain at this site. This finding was discussed with him at the bedside as well as the recommendation to take down the balloon and advance the tube. He was understanding of this. At the bedside the balloon was taken down and the tube was advanced without difficulty. The gastrostomy tube was then aspirated with evidence of gastric contents and air. The balloon was then reinflated without difficulty. Would recommend further imaging to confirm appropriate placement of the PEG tube prior to reinitiating use of the tube. Pending results of this further imaging the tube can be used to reinitiate tube feeds. (2) Tonsillar cancer: Status: Acute History of Present Illness Narrative: Patient is a 59-year-old male admitted to the medicine service for tonic-clonic seizures and abdominal pain, nausea, and vomiting. He notes that he has recently completed treatment for tonsillar cancer and had a PEG tube placed at [facility] around 3 months ago to assist with nutrition. He does note that he is able to swallow water and pills and some soft foods. He is currently using the PEG tube for some medications and tube feeds. It was noted upon initiation of tube feeds this morning that there was a obstruction in the line and he had increased pain at the PEG tube site. Given this his tube feeds were held and surgery was consulted for further evaluation. Review of Systems Constitutional Constitutional: Denies chills and Denies fever(s) Cardiovascular Cardiovascular: Denies chest pain and Denies dyspnea Respiratory Respiratory: Denies dyspnea Gastrointestinal Gastrointestinal: Denies nausea and Denies vomiting Integumentary/Breasts Skin/Breast: Denies new lesions and Denies rash PFSH All Active Problems (Updated 03/17/25 @ 03:41 by Portillo Nuñez MD) Severe protein-calorie malnutrition (Acute) History of psychogenic nonepileptic seizure (Acute) Tonsillar cancer (Acute) PEG (percutaneous endoscopic gastrostomy) status (Acute) Hypomagnesemia (Acute) Convulsions (Acute) Hypoalbuminemia (Acute) Elevated BUN (Acute) Increased anion gap metabolic acidosis (Acute) Elevated LFTs (Acute) Hyperbilirubinemia (Acute) Nausea & vomiting (Acute) Social History Smoking/Tobacco Use Status: Never Smoking risk assessment performed?: Yes Alcohol Intake: never Exam Narrative Exam Narrative: General: Well appearing, no acute distress. Skin: Good turgor, no visible rashes or lesion HEENT: Normocephalic, atraumatic, no visible masses, neck supple CV: Regular rate Lungs: Bilateral equal chest rise, non-labored breathing Abdomen: Soft, non-distended, tenderness to palpation at gastrostomy tube site, no diffuse abdominal tenderness or rebound, gastrostomy in LUQ with small amount of surrounding drainage, no surrounding erythema Extremities: Warm, well perfused Neurologic: No focal deficits Psychiatric: Alert and oriented Results Last Vital Signs Temp 37.7 C H 03/17/25 11:04 Pulse 108 H 03/17/25 11:04 Resp 16 03/17/25 11:04 BP 111/71 03/17/25 11:04 Pulse Ox 99 03/17/25 11:04 Labs 03/17/25 06:39 03/17/25 06:39 Labs: Laboratory Results - last 24 hr 03/17/25 06:39 WBC 3.12 L RBC 2.90 L Hgb 9.0 L D Hct 25.4 L MCV 88 MCH 31.0 MCHC 35.4 RDW 16.4 H Plt Count 111 L MPV 11.4 H Sodium 135 L Potassium 3.6 Chloride 101 Carbon Dioxide 24.5 Anion Gap 9.5 BUN 18 Creatinine 1.0 Est GFR (CKD-EPI 2020) 87.78 Glucose 132 H Calcium 8.4 L Magnesium 1.8 Total Bilirubin 1.2 H AST 41 H ALT 119 H Alkaline Phosphatase 118 H Total Protein 5.6 L Albumin 2.[address] scan report/results: report reviewed and image reviewed
[2025-03-17] MEDS: Gastrografin 120 ML BTL PO (17:47)
--- NOTE | 2025-03-17 17:50 | DI.RAD_ITS ---
Exam(s) XR ABDOMEN FLAT PLATE EXAM: 2D digital imaging was performed. CLINICAL HISTORY: PEG placement adjusted at bedside. COMPARISON: CT CT ABDOMEN PELVIS W from 03/16/2025 CR XR CHEST 2V PA LATERAL from 03/16/2025 TECHNIQUE: Supine views of the abdomen performed. Two views were obtained. FINDINGS: The preliminary film shows a nonspecific bowel gas pattern. There is a moderate amount of stool throughout the colon. There is a percutaneous gastrostomy tube present in the left upper quadrant. Contrast was administered via the PEG tube. The contrast passes into the stomach. There is no extravasation of contrast into the peritoneal cavity noted. IMPRESSION: 1. Nonobstructive bowel gas pattern. 2. Percutaneous gastrostomy tube appears to be in good position. No extraluminal contrast is seen. DATA REPOSITORY: RADIATION DOSE DELIVERED:
[2025-03-17] MEDS: Amitriptyline 10 MG TAB 25 MG PO (20:16)
[2025-03-17] MEDS: Prazosin 2 MG CAP PO (20:18)
[2025-03-17] MEDS: Atorvastatin 10 MG TAB PO (20:19)
[2025-03-18] VITALS (8 sets, daily range): BP systolic 81–117; BP diastolic 53–73; PULSE 92–110; RESP 17–20; TEMP 36–37; O2SAT 93–99
[2025-03-18] MEDS: LORazepam 20 MG/10 ML VIAL IVP (00:28)
--- NOTE | 2025-03-18 08:39 | PT.INIE ---
PT Notes Visit Reasons: post-TBI seizures Physical Therapy Inpatient Initial Evaluation Date: 03/18/2025 Referring Doctor: Dr Dye PT Orders: PT CONSULT: PT Evaluation and treatment weakness Precautions:PEG tube, telemetry, Patient Profile/Admitting Diagnosis: Patient is 59-year-old male presented to the ED on 03/16/2025 with seizures. Patient with known tonsillar cancer and has completed chemo and radiation therapy. Patient underwent adjustment of PEG tube on 03/17/25 due to pain. PT consult placed while in the ED secondary to weakness. PMHX: Severe protein-calorie malnutrition (Acute) History of psychogenic nonepileptic seizure (Acute) Tonsillar cancer (Acute) PEG (percutaneous endoscopic gastrostomy) status (Acute) Hypomagnesemia (Acute) Convulsions (Acute) Hypoalbuminemia (Acute) Elevated BUN (Acute) Increased anion gap metabolic acidosis (Acute) Elevated LFTs (Acute) Hyperbilirubinemia (Acute) Nausea & vomiting (Acute) Social History/Home Situation: Pt independent with ambulation and ADLs. He is uncertain of his disposition at this time. He was independent with stairs , driving. Equipment Owned/DME: None Subjective: Patient reports he will not be returning to his home. He states he likely will be going to a place where there are 2 steps to enter but he is uncertain at this time. He reports frustration that his abdominal pain is not better. He reports he has been out of work on workmans comp. Objective: [] General Observation: Male presented supine in bed hands on his stomach Mental Status: Alert and oriented x 4, initially angry regarding situation. He is cooperative able to follow instructions and by end of session was pleased with how he was able to perform. Pain: 8/10 abdomen nurse aware ROM: [] BUE: WNL Right Lower Extremity: WNL Left Lower Extremity: WNL Strength: [] Right Upper Extremity: 4/5 Left Upper Extremity: 4/5 Right Lower Extremity: hip flexion 2+/5, hip abduction 2/5, hip extension 3-/5, knee extension3/5, knee flexion2+/5 ankle DF 3/5 PF 3/5 Left Lower Extremity:hip flexion 2+/5, hip abduction 2/5, hip extension 3-/5, knee extension3/5, knee flexion2+/5 ankle DF 3/5 PF 3/5 Sensation: intact Bed Mobility/Transfers: [] Supine to sit Independent Sit to stand CGA with cues for hand placement Stand to sit CGA with cues for hand placement Bed to chair CGA with FWW Gait:Amb with FWW with CGA initally able to clear B toes with increased WB through BUE and increased forward lean . Pt demonstrates impaired hip and knee flexion during swing phase for foot clearance B. As fatigues and distance increased beyond 20 feet pt with impaired DF B requiring cues to initiate advancement with toes up to prevent dragging of dorsum of toes on floor. Pt ambulated a total distance of 48 feet. Balance: [] Static Sitting: Normal Dynamic Sitting: Good Static Standing: Fair with BUE support Dynamic Standing:Fair -with UE support Special Tests: [] Mobility Limitations Standardized Measure [] [facility] 6 clicks Basic Mobility Inpatient Short Form: [] Raw Score: 18 CMS Score: 46.58% deficit Informed Consent/Education: Patient instructed in purpose of PT consult. Treatment: [id number] Sit to stand from chair, wheelchair, commode with contact-guard assist and verbal cues for hand placement to push up stand to sit at chair wheelchair bed, commode contact-guard assist verbal cues to reach back with both hands to lower self to surface Step turn transfer wheelchair to bed with contact-guard and verbal cues to push up from wheelchair 1 upper extremity support on rail of bed. Patient able to demonstrate adequate foot clearance for step turn transfer Sit to supine min assist for lower extremities into bed patient also utilizing bilateral upper extremities to raise legs into bed due to impaired hip strength Assessment: Pt currently requires the use of a FWW for short distance ambulation. His activity tolerance is limited by abdominal pain, impaired LE strength. Patient is a 59-year-old male who presents with clinical signs and symptoms consistent with current/admitting diagnoses that have resulted to mobility limitations, gait instability, generalized weakness, and impairment of motor control as demonstrated by the following impairment level findings: 1. Decreased strength to BUE/BLE major muscle groups 2. Impaired standing balance 3. Pain in abdomen at site of PEG tube 4. Impaired functional activity tolerance Impairments are contributing to the following functional limitations: 1. Inability to safely ambulate without assistive device 2. Increase completion time for mobility ADL performance 3. Increased fall risk 4. Decline in bed mobility skills 5. Declining transfer skills 6. Inability to perform stairs safely 7. AM-PAC score indicating 46.58% deficit/impairment Patient is assessed as a moderate complexity based on the following: History: 59-year-old male with impairment level findings, functional limitations, and past medical history as indicated above Examination: Demonstrable impairment in strength, balance, and mobility level with underlying impairments and functional limitations as documented above Presentation: Evolving Decision Making: Moderate Goals: 1. Independent bed mobility 2. Independent transfers with least restrictive device 3. Independent ambulation with least restrictive device greater than 150 feet level surfaces including turns 4. Supervision greater than 2 steps with 1 rail to safely enter and exit home 5. Independent home exercise program Plan of Care/Treatment Plan: 1-2x/day, 7 days/week x 1 week. Plan of care has been reviewed with the ADMINISTRATIVE EXECUTIVE providing the service under Physical Therapy direction. Initiate Physical Therapy intervention for strengthening, bed mobility, transfers, gait, stairs, balance training, use of assistive device. DISCHARGE RECOMMENDATIONS: Home with HHPT versus short-term SNF depending on progress towards goals TREATMENT CODE/TIME: 33169, [id number] Thank you for the opportunity to participate in the care of this patient. Melany Cleveland, PT [facility]
--- NOTE | 2025-03-18 09:05 | PDOC.CMPRO ---
Date of service: 03/18/25 Time of Service: 09:05 Care Management Progress Note Progress Note Text Progress Note Text: Mae was lying in bed when CM met with him. He had been told that he might be discharged home today and he stated that he did not think that was a good idea.He informed CM that his abdomen around his G-tube site is still painful and that he had diarrhea overnight. Mae also noted that he has not eaten anything in 4 days and does not want to go home until he is sure he can tolerate his tube feedings. The tube feeding formula that Mae has been given at [facility] is different than his home preparation and Mae was reluctant to get any of the solution we have at [facility]. With the help of Wendy Hwang the GERIATRIC NURSE ASSISTANT, CM was able to acquire a 2 day supply of Mae's home TF which will be initiated later today. Mae also asked CM about eating real food. He stated he would really like to have some soup and crackers at least. CM consulted with his provider as well as the GERIATRIC NURSE ASSISTANT Wendy, and orders were written for a regular diet. Mae was given ice cream initially and plans to order dinner from the menu. Mae will remain at [facility] overnight to ensure he can tolerate both the tube feeding and oral intake. Discharge Potential Discharge Needs: PCP F/U Appt and Other (Oncology) Anticipated Barriers to Discharge: None Identified Patient/Family Education Needs: Review discharge instructions, discuss Ask Me Three Transportation: Private vehicle Plan: Anticipate Mae will be discharged home with no new services. He will follow up with his Oncologist, PCP and plan of care and transport with family. CM will follow and continue to support discharge planning efforts. Social Determinants of Health Screening Social Determinants of health last assessed in clinic: 03/18/25 Will the Patient Participate in the Screening?: Yes Do you worry about having a steady place to live?: no Problems where you live: no known problems In the past 12 months, have you had to go without electric, gas, oil or water in your home?: no 1. Within the past 12 months, we worried whether our food would run out before we got money to buy more.: Never true 2. Within the past 12 months, the food we bought just didn't last and we didn't have money to get more.: Never true Has lack of transportation kept you from medical appointments or from doing things needed for daily living?: no Has anyone in your life made you feel unsafe or unsupported?: no How hard is it for you to pay for the very basics like food, housing, medical care, and heating? Would you say it is:: Not hard at all Do you want help finding or keeping work or a job?: I do not need or want help If for any reason you need help with day-to-day activities such as bathing, preparing meals, shopping, managing finances, etc., do you get the help you need?: I could use a little more help How often do you feel lonely or isolated from those around you?: Never Do you speak a language other than Romansh at home?: Yes Does the patient want assistance with any of the above?: No Health Related Social Needs Health related social needs: problems with daily activities (Z73.9) and education (Z55.6) Health related social needs details: N/A
[2025-03-18] MEDS: amLODIPine 5 MG TAB PO (09:09)
[2025-03-18] MEDS: oxyCODONE 5 MG TAB PO (09:09)
[2025-03-18] MEDS: levETIRAcetam 500 MG TAB 1500 MG PO ×2 (09:10→20:12)
[2025-03-18] MEDS: Aspirin 81 MG CHEW PO (09:10)
[2025-03-18] MEDS: Omeprazole 20 MG CAPCR PO (09:10)
[2025-03-18] MEDS: Pregabalin 25 MG CAP 50 MG PO ×3 (09:10→20:12)
--- NOTE | 2025-03-18 09:10 | PCNE_ITS ---
Date of service: 03/18/25 Time of Service: 09:10 History of Present Illness Narrative: Mr. 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 [place] Oncology history: dx w/R tonsilar cancer w/EHE 8 weeks ago, f/b ; curative intent; completed 34 out of 35 rad cycles, cisplatin for chemo, reports completed course, aware of dose reduction d/t ADR; reports he had a CT recently w/them which showed no cancer, he is optimistic he is cancer free, aware of surveillance scans, unsure next f/u - he tried his best to complete all treatments, however could not tolerate last Rad on 03/16, had feeling he was going to have seizure that day, was feeling awful, opted to not complete last rad - Pain: pain significant, rated 10/10; around PEG side and into throat; oxycodone not lasting 4 hours; has received 1 dose of IVP Dilaudid 0.5mg overnight, oxycodone 5mg q4h PRN, Ativan PRN; he would like his pain under better control; remains sig today, monae in abdomen - Nausea: none today; controlled outpatient w/Zofran and Compazine; was sig w/treatments; - Resp: thickened throat sputum increases nausea/vomiting, he has trialed Mucinex w/no effect; previously did cough up lots of blood, today scant blood w/cough - Intake: limited to water and soft foods, can tolerate swallowing pills; does not recall XR post PEG adjustments or them refilling balloon, would want this confirmed prior to restarting feeds; at home using 5 cartons/day, f/b nutrition at ; aware of malnutrition history, has lost sig weight w/treatment - Seizures: history of psychogenic nonepileptic seizures since his TBI 10 years ago, relatively controlled, worse w/increased sxs/pain/feeling like shit, he can tell when they are going to occur; increased seizure activity w/cancer dx; lorazepam w/good effect, does not have any in home - BM: sig BM last night, moved a ton, up to 7 times, did have liquid BM this morning; potentially a/w PEG feedings; was barely continent Social: lives in [facility] alone, plan is to relocate to son Angy on discharge for appropriate help during his recovery; also in home Tucker's Jessika and his grandson Ras, Ras is his whole worse, his purpose for living and his bed bud; together they like to ski, snow mobile and do all things fun, Ras is always with him and makes him really happy - he has a robust history and life, he has done a little bit of everything over the years, including: 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, 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 in 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, 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, 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, 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, 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, has been in 3 movies, maybe a 4th this summer if he is feeling well; he loves learning and is not afraid to try anything; he reports he even participated in dog sledding in [employer] - born and raised in [place]; is registered w/[employer], and is [place] - 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 [employer] ACP: reports AD previously completed, on file potentially w/PCP/, son could bring in a copy; he reports he would like to change HCA from ex- today; he otherwise feels it does reflect current preference for not being kept alive on machines for over 24h if no chance of recovery, he does not want to suffer; he is a full code for now; he does not want to be a burden - he is looking forward to regaining ability eat and having first a cheese burder and then prime rib Assessment and Plan Assessment and plan (1) Severe protein-calorie malnutrition: Status: Acute Assessment and plan: dependent on PEG for feeding at this time recent [place] [facility] [place] for malnutrition feeds held today pending confirmation of placement nutrition following (2) History of psychogenic nonepileptic seizure: Status: Acute Assessment and plan: started Keppra for seizures long history, he does have sense of when they are coming lorazepam w/good effect recommend lorazepam outpatient for PRN (3) Tonsillar cancer: Status: Acute Assessment and plan: Primary: R tonsilar cancer, SCC, T2N1M0 Secondary sites: NIELS Treatment: curative Surgery: none Radiation: per report, completed 34/35 rad sessions Chemotherapy: per report, completed cisplatin course; aware of reduced dose d/t ADR Re-staging response:?none yet; reports CT scan showed no cancer at Followed-by: , Dr Riddle, and rad/onc (4) PEG (percutaneous endoscopic gastrostomy) status: Status: Acute Assessment and plan: to restart feeding today (5) Nausea & vomiting: Status: Acute Assessment and plan: improved now was using Zofran and Compazine (6) Diarrhea: Status: Acute Assessment and plan: overnight, sig and severe recommend consider Imodium if diarrheal sxs ongoing; potentially related to PEG feed? (7) Cancer related pain: Status: Acute Assessment and plan: recommend switch to all Dilaudid for pain control Dilaudid 0.5mg IVP q1h PRN order, w/transition to oral as tolerated stop oxycodone (8) Discharge planning issues: Status: Acute Assessment and plan: potentially ready for discharge; pending tolerating re-starting feeding PT recommending PT current plan to discharge to son's house for appropriate caregiving needs (9) Palliative care encounter: Status: Acute Assessment and plan: PC will continue to follow, anticipate he will be discharged prior to next avail inpatient - recommend close f/u inpatient as available - continue to review AD, update as appropriate - review pain medications, outpatient discharge plan (10) ACP (advance care planning): Status: Acute Assessment and plan: reviewed palliative care, quality of life goals and future visit goals reviewed AD, previously completed, would need to review/update; would not want to be kept alive on machines or ventilator, does not want to suffer; remains full code for now; does want to change HCA from ex- to son; HCA form updated and complete; encourage son to bring in copy for ongoing review reviewed oncology history, treatment plan and f/u scans for surveillance; reviewed recovery phase of treatments spent 35m w/ACP Review of Systems Narrative: as per HPI PFSH All Active Problems (Updated 03/18/25 @ 10:48 by Peggy Garcia NP) Discharge planning issues (Acute) Cancer related pain (Acute) Diarrhea (Acute) ACP (advance care planning) (Acute) Palliative care encounter (Acute) Severe protein-calorie malnutrition (Acute) History of psychogenic nonepileptic seizure (Acute) Tonsillar cancer (Acute) PEG (percutaneous endoscopic gastrostomy) status (Acute) Hypomagnesemia (Acute) Convulsions (Acute) Hypoalbuminemia (Acute) Elevated BUN (Acute) Increased anion gap metabolic acidosis (Acute) Elevated LFTs (Acute) Hyperbilirubinemia (Acute) Nausea & vomiting (Acute) Social History Smoking/Tobacco Use Status: Never Smoking risk assessment performed?: Yes Alcohol Intake: never Exam Narrative Exam Narrative: General:frail appearing 59 y/o M, lying in hospital bed throughout visit; engages regularly throughout HEENT: hearing grossly WNL; normocephalic, atraumatic; facial exam WNL Resp: normal resp effort, speaks full sentences w/o SOB; intermittent wet cough w/thick white sputum, one cough w/scant blood present, guarding w/cough over abdomen Skin: no rashes or lesions present Psych: cooperative, pleasant, MS WNL, thought process normal, tangential and loose association; mood congruent; insight/judgment fair to good Results Last Vital Signs Temp 97.7 F 03/18/25 08:05 Pulse 110 H 03/18/25 08:05 Resp 20 03/18/25 08:05 BP 81/56 L 03/18/25 08:05 Pulse Ox 99 03/18/25 08:05 Labs 03/17/25 06:39 03/17/25 06:39 Time Spent Time Spent with Patient Time Spent(min): 65
[2025-03-18] MEDS: Normal Saline Flush 10 ML SYR IVP ×2 (09:24→20:18)
--- NOTE | 2025-03-18 10:26 | W.PM.PROGNOT ---
Date of Service Date of service: 03/18/25 Time of Service: 10:26 Assessment and Plan Assessment and plan (1) Convulsions: Status: Acute Assessment and plan: Witnessed episodes X2 in ED without post-ictal state, no loss of urine or bowels- No further occurences Given benzodiazepines after these episodes- jordana continue PRN oral lorazepam Pain exacerbation with all-body spasms with exacerbation of pain in his mouth and jaw, which are partially relieved with lorazepam -PRN oxycodone ( also on home med list) - Consider PRN hydromorphone for bedside procedures or intractable pain No neurology consult at this time[place] [facility] [place] [facility] [place] summary -Patient reporting EEG and work-up w/o conclusive findings and f/u with neurology next month On home amitriptyline , prazosin, pregabalin, rimegepant Continue levetiracetam (2) History of psychogenic nonepileptic seizure: Status: Acute Assessment and plan: history of 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 Patient experienced seizures after this event- reported neurology work-up negative [place] [facility] [place] Neurology evaluations during Mar 09 stay by [facility] [place] during convulsive episodes captured on EEG without epileptiforms Levetiracetam re-initiated at [facility] [place] during Mar 09 hospitalization Ongoing levetiracetam 1500mg PO BID after IV dosing in the ED Holding bupropion, consider discontinuing as it lowers seizure threshold with decreased clearanc ein hepatic impairment -recommendations to taper over 1-2 weeks to palliate to discontinuation syndrome- will resume lower dosage on d/c and outpatient management (3) PEG (percutaneous endoscopic gastrostomy) status: Status: Acute Assessment and plan: Ongoing G-tube care Able to tolerate flushing and gastrografin via PEG tube s/p adjustement at the bedside by Dr. Jane on 03/17/25 radiology imaging with gastrografin to confirm placement and balloon placement -Resumption of feeding via G-tube ordered on 03/17/25 at 19:52- to assess feeding tolerance and discharge in the morning- order not completed 03/18/2025- patient is refusing for RN to initiate feeding via G-tube until this provider showed the patient the inflated PEG-tube balloon on XR imaging This AM, the patient is agreeable to G-tube feeding resumption and home formula brought in around 15:00 today -to assess feeding tolerance prior to discharge No appearance of infection at site Planned discharge on 1016 AM pending the ongoing absence of seizures and feeding tolerance (4) Gastric ulcer: Status: Acute Assessment and plan: As per ED provider's notes: During hospital admission of Mar 09:scope revealed multiple ulcers in his stomach, and he was advised to take omeprazole twice daily to manage acidity; upon discharge, he was only given Tylenol. will hold daily omeprazole and add BID IV PPI with ongoing discomfort and PEG tube manipulation Sucralfate PO AC and HS (5) Nausea & vomiting: Status: Acute Assessment and plan: Continue PRN ondansetron, prochlorperazine and as above (6) Tonsillar cancer: Status: Acute Assessment and plan: Palliative care consult: read notes please -Pain meds adjustment done as per recommendation- patient's preference for hydromorphone VS oxycodone - Reported finishing curative CA treatment with clear CT imaging recently - As per discussion with PC - can hydromorphone more often - Will discontinue oxycodone - Ongoing PRN IV hydromorphone - Will evaluate dosage and transition to oral therapy in planning for home discharge- administer oral first -Pain management seems to be working in the setting of tonsillar CA preventing solid enteral intake - patient requested regular diet this PM - order placed Physical therapy consult: Recommendation for home with HH PT versus short-term SNF depending on progress towards goals - Home health services elected as per shared decision making Added PRN APAP dosing adjusted to LFT's Ongoing home dose of Lyrica Follow-up with oncologist recommended (7) Hypomagnesemia: Status: Acute Assessment and plan: Repleted in ED mag 1.8 Mag level in AM (8) Loose bowel movements: Status: Acute Assessment and plan: Due to GI contrast via PEG tube imaging s/p placement adjustment , no reported hematochzia (9) On deep vein thrombosis (DVT) prophylaxis: Status: Acute Assessment and plan: SCD's or TEDs Stable anemia with thrombocytopenia CBC pending (10) Severe protein-calorie malnutrition: Status: Acute Assessment and plan: Nutrition consult completed: Tube feeds per recommendations initially Trial of home formulation - was only able to tolerate 2 cartons lately as per nutritonist notes - f/u with oncology brand advisor outpatient Discussed with Dr. Salazar (11) Transaminitis: Status: Acute Assessment and plan: On admission - now trending down with improved hyperbilirubinemia (12) Hypertension: Status: Chronic Assessment and plan: on home dose of prazosin and amlodipine (13) Hyperlipidemia: Status: Acute Assessment and plan: On home dose statin lipid panel pending (14) Hyponatremia: Status: Acute Assessment and plan: Na 135 not actionable at this time - will trend BMP pending Subjective Subjective Patient reports: still having pain, tolerating liquids well, voiding w/o difficulty, no bowel movement (since sunday) and afebrile; denies tolerating a regular diet (head and neck CA - on tube feeding- G tube area less painful), diarrhea, nausea, vomiting, shortness of breath or fever Exam Narrative Exam Narrative: Alert and oriented X4, normocephalic, non-icteric and non-injected sclera neurologically intact, unlabored breathing, clear lungs, S1 S2 regular, PPPX4, abdomen is non-distended, soft reduced tenderness to PEG tube site surrounding area no marked erythema, moves all 4 ext., seizure pads on bed, RASS 0-1 , anxious Objective Last Vital Signs Temp 36.5 C 03/18/25 08:05 Pulse 105 H 03/18/25 09:48 Resp 20 03/18/25 08:05 BP 109/73 03/18/25 09:48 Pulse Ox 97 03/18/25 09:48 Time Spent with Patient Time Spent with Patient: >50 minutes Time was spent: preparing to see the patient(eg.review tests), obtaining and/or reviewing separately otained hiistory, ordering medications,tests, procedures, referring, communicating with other health customer care assistant, indepentently interpreting results, counseling the patient, care coordination and other
[2025-03-18] MEDS: HYDROmorphone 2 MG/ML SYR 0.5 MG IVP (10:58)
--- NOTE | 2025-03-18 13:12 | W.NUTRFU ---
Date of service: 03/18/25 Time of Service: 11:00 Nutrition Note NOTE: Mr Laboy sitting up in bed on my visit today, occasionally taking sips of water via straw and grimacing on swallowing. He is 191lbs currently and reports UBW of ~238lbs about 4 months ago. He showed pics of before tx of well rounded face and has obviously had some deterioration of fat and muscle mass. Brief NFPRE performed and noticeable wasting to gastroc area/temporalis and fat losses around buccal and orbital fat pads. Was able to review oncology dietitian notes from 03/03 follow up with her and also interview Mr Laboy - enteral feeding toleration has not been going to well. Has tried gravity bag and pump at home with both Nutren 1.5 (increased n/v) and isosource 1.5 (tolerating max of 3 cartons per day - more recently only 2) He recently has significant pain around his PEG site, which is being looked into to see if balloon/position is accounted for. I put in a tube feed order last evening for 25mL/Hr of Peptamen 1.5 (no isosource in house and feel hyrolyzed protein may be tolerated better) with increase of 5mL per hour q 6 hours until goal rate of 44mL per hour is achieved - suggest run continuously to help with toleration/n/v/d. This recommendation based on 1800kcals to start slow. Per below, patient's current needs are higher and will need to titrate once tolerating current ordered rate. However feeding was discontinued last night as a set back due to pt having excruciating pain on flushing. Feeding still on hold as of this afternoon. Pt still having diarrhea - related his embarrassment of being incontinent of diarrhea last night in bed. - may benefit from banatrol supplement either if tolerated mixed with water po or can be added to water and flushed through feeding tube. Estimated energy needs: 2135kcals (MSJx1.2AF), 103-129g protein (1.2-1.5g/kg) for muscle reconditioning, and 1mLfluid per kcal. Pt takes taking at least 600mL water daily by straw currently per interview. Recommendations: Once feedings can be resumed without pain, would suggest resuming current order, monitoring toleration and continuing to work on diarrhea mgt with consideration of banatrol additive either po or via peg. Will continue to monitor for resumption of feeding, toleration, nutrition related labs, weight, and diarrhea concerns. Time Spent in Nutritional Counseling and Treatment: 10 min
[2025-03-18] MEDS: HYDROmorphone 2 MG TAB 1.5 MG PO ×2 (15:51→20:12)
[2025-03-18] MEDS: Sucralfate 1 GM TAB PO ×2 (18:06→20:12)
[2025-03-18] MEDS: Pantoprazole 40 MG VIAL IVP (18:07)
[2025-03-18 18:11] LABS: Abs Immature Grans 0.03 10^3/uL (0.0-0.06); HCT 23.7 % (40.0-50.0); HGB 8.2 g/dL (13.5-17.5); Immature Grans % 0.8 %; MCH 30.3 pg (27.0-33.0); MCHC 34.6 % (32.0-36.0); MCV 88 fL (80-95); MPV 10.8 fL (8.0-11.0); Platelet Count 133 10^3/uL (130-400); RBC 2.71 10^6/uL (4.36-5.78); RDW 16.5 % (11.8-14.1); RDW-SD 51.8 fL; WBC 3.96 10^3/uL (4.4-10.8)
[2025-03-18 18:20] LABS: Anion Gap 10.9 mmol/L (3-11); BUN 18 mg/dL (7-18); CO2 25.1 mmol/L (21.0-32.0); Calcium 8.4 mg/dL (8.5-10.1); Chloride 98 mmol/L (98-107); Estimated GFR 103.22 (mL/min/1.73m2); Glucose 103 mg/dL (74-106); Potassium 3.1 mmol/L (3.5-5.1); Sodium 134 mmol/L (136-145)
[2025-03-18] MEDS: Amitriptyline 10 MG TAB 25 MG PO (20:11)
[2025-03-18] MEDS: Atorvastatin 10 MG TAB PO (20:12)
[2025-03-18] MEDS: Prazosin 2 MG CAP PO (20:12)
[2025-03-19] MEDS: HYDROmorphone 2 MG TAB 1.5 MG PO ×2 (05:35→15:35)
[2025-03-19 05:47] VITALS: BP 111/63; PULSE 92; RESP 18; TEMP 36; O2SAT 97
[2025-03-19 06:00] LABS: Abs Immature Grans 0.04 10^3/uL (0.0-0.06); HCT 24.6 % (40.0-50.0); HGB 8.7 g/dL (13.5-17.5); Immature Grans % 1.3 %; MCH 30.7 pg (27.0-33.0); MCHC 35.4 % (32.0-36.0); MCV 87 fL (80-95); MPV 11.0 fL (8.0-11.0); Platelet Count 149 10^3/uL (130-400); RBC 2.83 10^6/uL (4.36-5.78); RDW 16.4 % (11.8-14.1); RDW-SD 50.6 fL; WBC 3.19 10^3/uL (4.4-10.8)
[2025-03-19] MEDS: Pantoprazole 40 MG VIAL IVP (06:07)
[2025-03-19 06:08] LABS: Magnesium 1.8 mg/dL (1.8-2.4)
[2025-03-19 06:24] LABS: Anion Gap 7.9 mmol/L (3-11); BUN 14 mg/dL (7-18); CO2 28.1 mmol/L (21.0-32.0); Calcium 8.4 mg/dL (8.5-10.1); Chloride 100 mmol/L (98-107); Estimated GFR 99.62 (mL/min/1.73m2); Glucose 167 mg/dL (74-106); Potassium 3.3 mmol/L (3.5-5.1); Sodium 136 mmol/L (136-145)
[2025-03-19 07:09] LABS: Calculated LDL 86 mg/dL (<100); Cholesterol 135 mg/dL (<200); HDL Cholesterol 22 mg/dL (>or=40); Triglyceride 137 mg/dL (<150)
[2025-03-19 07:40] VITALS: BP 91/48; PULSE 97; RESP 16; TEMP 36.1; O2SAT 99
--- NOTE | 2025-03-19 08:43 | W.NUTRFU ---
Date of service: 03/19/25 Time of Service: 08:43 Nutrition Note NOTE: follow up with Mae and his son (here to take Mae home as discharge was anticipated today). PEG was evaluated and repositioned with good outcome - Mae states tender at the site but the pain much improved from two nights ago. Feeding restarted with isosource brought in as this was his assigned formula at home - order changed to accommodate this. At my visit this morning pump was at 35mL per hour with just under 500mL taken so far today with improved toleration. Pt states stooling improved - still having loose stool but significantly better than two nights ago. PT has a strong desire to take foods orally - ordered for regular diet last night at dinner but has not attempted po yet as he states he did cough up some mucous with blood in it this morning. I agreed he should be extremely cautious. Reviewed goal for home would eventually be to taper from continuous feeds as oral intake improves and/or greater volumes can be tolerated to move to bolus feeds so he is not tethered to a pump the entire day. Patient with no immediate questions or needs other than needing to get more familiar with his pump settings at home - says he has a manual but can be tricky. Suggested that home health could be considered to help him or youtube instructional videos for his brand of pump could be viewed to help him get more familiar. Will remain available today for any needs or questions prior to discharge. Suggested discharge order for enteral feedin-6 cartons isosource 1.5 formula per 24 hours run continuously or intermittently as tolerated, with goal to taper as oral intake becomes more significant. Time Spent in Nutritional Counseling and Treatment: 15 min
[2025-03-19 08:45] VITALS: BP 112/70; PULSE 82; RESP 18; O2SAT 96
[2025-03-19] MEDS: Pregabalin 25 MG CAP 50 MG PO (08:49)
[2025-03-19] MEDS: Sucralfate 1 GM TAB PO (08:49)
[2025-03-19] MEDS: levETIRAcetam 500 MG TAB 1500 MG PO (08:50)
[2025-03-19] MEDS: Aspirin 81 MG CHEW PO (08:50)
[2025-03-19] MEDS: amLODIPine 5 MG TAB PO (08:50)
[2025-03-19] MEDS: Normal Saline Flush 10 ML SYR IVP (08:51)
[2025-03-19 10:39] VITALS: BP 97/57; PULSE 96; RESP 16; TEMP 37.7; O2SAT 97
--- NOTE | 2025-03-19 10:44 | PTTR_ITS ---
PT Notes Visit Reasons: post-TBI seizures Inpatient Physical Therapy Treatment Note [facility] Date: 03/19/2025 PRECAUTIONS:PEG tube, Seizures, IV access SUBJECTIVE: Pt reported in am that he had a seizure earlier in the morning. He stated he got his usual aura prior to it occurring. In pm pt reported he had another seizure and they called everyone into the room. OBJECTIVE: Pt presented supine in bed agreeable to walk. PEG tube connected.? PAIN: abdominal 5/10 VITALS: ?monitored via telemetry Therapeutic Activities (39944s[]): Direct one-on-one instruction in dynamic a ctivities to improve functional performance. ?? (AM/PM Session) ? BED MOBILITY/TRANSFERS? Rolling L/R: independent Supine-sit: independent ? Sit-supine: independent with use of BUE to lift BLE into bed ? Sit-stand: SBA? Stand-sit: SBA ? Bed-Chair: supervision with FWW ? (PM ? Chair-bed: Supervision with FWW (pm) chair to/from toilet with FWW CGA Provided skilled cues and instruction on performance and technique throughout. Gait Training (18067b[]): Direct one-on-one instruction and skilled instruction in: [X] movement sequencing [X] turning and movement with proper form [X] Provided verbal cues for equipment management and technique [X] Provided instruction in gait pattern for foot clearance [X] Patient education regarding pacing and breathing techniques to maximize activity tolerance? GAIT? Assistive Device: FWW? Weight bearing: Full Assist: CGA? Distance:?160 feet ? Deviation: Pt continue with poor foot clearance last 22 feet ? ASSESSMENT:? Pt demonstrates progression with gait with FWW demonstrating improved foot clearance until last 22 feet in which he began to have difficulty advancing LEs. Pt adamant about not sitting to rest. Pt was provided with cues to increase hip flexion and increase upright posture to aid in foot clearance. Pt noted hip pain and weakness as difficulty advancing BLE. Pt with excessive WB through BUE on FWW in am and pm. Pt was fitted for and issued FWW. His son was present for PM session and is able to assist with stairs at home as pt is being discharge to home with Home health services PLAN:Continue with POC until discharge TREATMENT CODE/TIME: first session 54729/ [id number] second session: 29585/ [id number] DISCHARGE RECOMMENDATION: Home with HHPT and use of FWW
--- NOTE | 2025-03-19 11:04 | W.PM.DS.N ---
Date of service: 03/19/25 Time of Service: 11:04 DS: Diagnosis Discharge Diagnosis (1) Convulsions: Status: Acute (2) History of psychogenic nonepileptic seizure: Status: Acute (3) PEG (percutaneous endoscopic gastrostomy) status: Status: Acute (4) Gastric ulcer: Status: Acute (5) Nausea & vomiting: Status: Acute (6) Tonsillar cancer: Status: Acute (7) Hypomagnesemia: Status: Acute (8) Loose bowel movements: Status: Acute (9) On deep vein thrombosis (DVT) prophylaxis: Status: Acute (10) Severe protein-calorie malnutrition: Status: Acute (11) Transaminitis: Status: Acute (12) Hypertension: Status: Chronic (13) Hyperlipidemia: Status: Acute (14) Hyponatremia: Status: Acute Discharge Plan Disposition Patient Disposition: Home W/Home Health Services Condition: Improving Discharge Details Reason For Visit: post-TBI seizures Admit Date/Time: 03/16/25 16:15 Admit Provider: Portillo Nuñez Attending Provider: Portillo Nuñez Primary Care Provider: Unknown,Unknown Hospital Course Hospital Course: 59 year old man with a past medical history of seizure post TBI, tonsillar cancer, hypertension presenting March 16 with convulsions he describes as tonic-clonic seizures, as well as spasming pain from his active tonsillar cancer, and nausea/vomiting. PEG tube in place to assist with nutrition but the patient can o swallow water and pills and some soft foods. [place] [facility] [place] for malnutrition, duodenitis, possible refeeding syndrome; his convulsions were diagnosed as psychogenic nonepileptic seizures as per EEG without AED on discharge. 2 episodes of [id number] convulsions witnessed in the ED with negative work-up as per EKG , CXR, head CT and CT abdomen pelvis showing PEG in place. He was given ondansetron, hydromorphone, levetiracetam, NS 500 ml bolus, famotidine, magnesium, lorazepam, oxycodone, pregabalin and admitted to the hospitalist service to the medical surgical floor for ongoing evaluation and management. Wellbutrin recently started was held d/t potentially lower seizure threshold. Due to ongoing report of pain with flushing of PEG-tube, a surgical consult was ordered. PEG tube: Balloon placement rectified by Dr. Jane from surgery with imaging confirming placement and balloon inflation; home gastric tube feeding formula well tolerated overnight. Proton pump inhibitor and sucralfate initiated d/t history of gastric ulcer findings during [place] 09[place] [facility] [place] Resume gastric tube feeding as prior to arrival, an follow-up with your outpatient nutrition provider. Seen by palliative care with plan to continue to follow outpatient to discuss AD ; opioid medicine and lorazepam adjusted as per recommendations and morphine mmEq/ 24 hours. Episode of non- tonic-clonic seizure activity reported overnight and today, last episode w/o LOC, urinary or bowel incontinence, hemodynamic instability, no ectopy on telemetry , no post-ictal state- appeared to be of psychogenic origin occurring during the completion of discharge instruction education by RN. Patient stating I deal with that all the time at home when possibility of this event increasing his length of stay. The patient is hemodynamically stable, afebrile and will be discharged home today with home health physical therapy and nursing. Follow up with PCP within 7 days of discharge and continue to follow-up as plan with neurology and oncology. The patient mentioned been on Topiramate at home; recommendation to continue home dose topiramate as per your outpatient provider latest orders. Discussed with Dr. Salazar Recommendations for Follow Up Recommended tests to be ordered by follow up provider: H-pylori test/ follow-up Home Meds and New Rx's Prescriptions: New levetiracetam 500 mg Tablet 1,500 mg PO Q12H Qty: 60 0RF sucralfate 1 gram Tablet 1 g PO AC & HS Qty: 60 0RF Rx Instructions: Ok to substitute to liquid form if available lorazepam 1 mg tablet 0.5 mg PO TID PRNQty: 10 0RF Rx Instructions: Francis orders a er PCP omeprazole 20 mg Capsule,Delayed Release(Dr/Ec) 40 mg PO BID Qty: 90 0RF Continued potassium chloride 20 mEq/15 mL liquid 20 meq PO DAILY Patient Comments: TAKE 15 ML ONCE DAILY BY PER G TUBE cholecalciferol (vitamin D3) [Pediatric D-Srinivas] 10 mcg/mL (400 unit/mL) drops 400 unit PO DAILY Patient Comments: USE 1 DROP VIA FEEDING TUBE DAILY amlodipine 5 mg tablet 5 mg PO DAILY Patient Comments: TAKE 1 TABLET BY MOUTH ONCE DAILY ondansetron HCl 4 mg tablet 4 mg PO Q8H PRN Patient Comments: TAKE 1 TABLET BY MOUTH EVERY 8 HOURS NEEDED FOR NAUSEA atorvastatin 10 mg tablet 10 mg PO QPM Patient Comments: TAKE 1 TABLET BY MOUTH ONCE DAILY amitriptyline 10 mg tablet 25 mg PO HS Patient Comments: TAKE 2 TABLETS BY MOUTH ONCE DAILY AT BEDTIME Nurtec ODT 75 mg tablet,disintegrating 75 mg PO Q OTHER DAY pregabalin [Lyrica] 20 mg/mL solution 50 mg PO TID Patient Comments: TAKE 2 1/2 (ONE-HALF) ML THREE TIMES DAILY VIA FEEDING TUBE prazosin 2 mg capsule 2 mg PO HS Patient Comments: TAKE 1 CAPSULE BY MOUTH IN THE EVENING aspirin [Adult Low Dose Aspirin] 81 mg PO DAILY prochlorperazine maleate 10 mg tablet 10 mg PO Q6H Qty: 0 0RF Patient Comments: TAKE 1 TABLET BY MOUTH EVERY 6 HOURS NEEDED Changed ibuprofen [IBU] 800 mg tablet 800 mg PO Q8H PRNQty: 0 0RF omeprazole 20 mg capsule,delayed release(DR/EC) 20 mg PO BID Qty: 0 0RF Patient Comments: TAKE 1 CAPSULE BY MOUTH ONCE DAILY Held bupropion HCl [Wellbutrin XL] 150 mg tablet extended release 24 hr 150 mg PO DAILY Hold Instructions: Resume on 03/25/25. held d/t reduction in seizure threshold reported adverse effect Discontinued oxycodone 5 mg tablet 5 mg PO Q6H Patient Comments: TAKE 1 TABLET BY MOUTH EVERY 6 HOURS NEEDED FOR PAIN (FOR BREAKTHROUGH PAIN. TAKE BY MOUTH OR CRUSH AND ADMINISTER PER G-TUBE AND FLUSH.) Discharge Instructions Stand Alone Forms: Nursing Discharge Form Referrals: Asif Gomez [NURSE PRACTITIONER, Medicine] Referral Note: Follow-up with PCP within 7 days of discharge please. Your PCP office will give you a call to make a follow up appointment, if you do not hear from your PCP please give them a call. 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 Discharge Orders Discharge Orders: Discharge Order (Routine); Ordered 03/19/25 Ordered By: Na May Discharge Data Discharge Date/Time-TO BE ENTERED AT DEPARTURE: 03/19/25 15:41 DS: Summary Time Spent with Patient providing and/or coordinating discharge services: Greater than 30 minutes Status at Discharge Functional status at discharge: independent ambulation Overall status at discharge: patient is progressing back to baseline Mental Status: mental status grossly normal Speech and Movement: speech and movement normal Mood: congruent mood Affect: normal affect Quality:SDOH Health Related Social Needs: Health related social needs daily activities education Health related social needs details N/A Health related social needs details: N/A Exam Narrative Exam Narrative: Alert and oriented X4, normocephalic, non-icteric and non-injected sclera neurologically intact, unlabored breathing, clear lungs, S1 S2 regular, PPPX4, abdomen is non-distended, soft reduced tenderness to PEG tube site surrounding area no marked erythema, moves all 4 ext., seizure pads on bed, RASS 0-1 , anxious Psych Mental Status: mental status grossly normal Speech and Movement: speech and movement normal Mood: congruent mood Affect: normal affect DS: Data Vitals/I&O Vitals and I&O: Vital Signs Temperature 37.7 C H 03/19/25 10:39 Temperature Source Temporal Artery Scan 03/19/25 10:39 Pulse 96 H 03/19/25 10:39 Pulse Rhythm Irregular 03/16/25 19:28 Pulse 90 03/16/25 18:00 Respiratory Rate 16 03/19/25 10:39 Respiratory Effort Normal, Non-Labored 03/16/25 19:28 Respiratory Depth Normal 03/16/25 19:28 Respiratory Pattern Normal 03/16/25 19:28 Blood Pressure 97/57 L 03/19/25 10:39 Blood Pressure Mean 70 03/19/25 10:39 Pulse Oximetry 97 03/19/25 10:39 Oxygen Delivery Method Room Air 03/19/25 10:39 Oxygen Flow Rate 0 03/19/25 10:39 Pain Level 9 03/19/25 10:39 Comment rn notified 03/19/25 10:39 Intake & Output 03/18/25 03/18/25 03/19/25 11:59 23:59 11:59 Intake Total 300 / 845 545 / 845 Output Total 800 / 800 Balance 300 / 830 530 / 830 -800 / -800 Intake: IV Oral 300 / 825 525 / 825 Output: Gastric Drainage Lt Upper Quadrant Urine 800 / 800 Other: Urine Color Light April Urine Appearance Clear Clear Comment stool mixed in with urine, unmeasurable Stool Size Small Small Stool Characteristics Liquid Liquid Brown Data Completed and Pending Labs on day of discharge: Labs from last 24 hours 03/19/25 03/18/25 04:55 18:00 WBC 3.19 L 3.96 L RBC 2.83 L 2.71 L Hgb 8.7 L 8.2 L Hct 24.6 L 23.7 L MCV 87 88 MCH 30.7 30.3 MCHC 35.4 34.6 RDW 16.4 H 16.5 H Plt Count 149 133 MPV 11.0 10.8 Immature Gran % 1.3 0.8 Neutrophils % 60.5 69.9 Lymphocytes % 27.9 18.9 Monocytes % 9.1 9.6 Eosinophils % 0.9 0.5 Basophils % 0.3 0.3 Nucleated RBC % 0.0 0.0 Absolute Neutrophils 1.93 2.77 Absolute Lymphocytes 0.89 L 0.75 L Absolute Monocytes 0.29 0.38 Absolute Eosinophils 0.03 0.02 Absolute Basophils 0.01 0.01 Sodium 136 134 L Potassium 3.3 L 3.1 L Chloride 100 98 Carbon Dioxide 28.1 25.1 Anion Gap 7.9 10.9 BUN 14 18 Creatinine 0.9 0.8 Est GFR (CKD-EPI 2020) 99.62 103.22 Glucose 167 H 103 Calcium 8.4 L 8.4 L Magnesium 1.8 Triglycerides 137 Total Cholesterol 135 LDL Cholesterol, Calc 86 HDL Cholesterol 22 L PFSH All Active Problems (Updated 03/19/25 @ 12:54 by Na May APRN) Hyperlipidemia (Acute) Hypertension (Chronic) Hyponatremia (Acute) Transaminitis (Acute) On deep vein thrombosis (DVT) prophylaxis (Acute) Gastric ulcer (Acute) Loose bowel movements (Acute) Discharge planning issues (Acute) Cancer related pain (Acute) Diarrhea (Acute) ACP (advance care planning) (Acute) Palliative care encounter (Acute) Severe protein-calorie malnutrition (Acute) History of psychogenic nonepileptic seizure (Acute) Tonsillar cancer (Acute) PEG (percutaneous endoscopic gastrostomy) status (Acute) Hypomagnesemia (Acute) Convulsions (Acute) Hypoalbuminemia (Acute) Elevated BUN (Acute) Increased anion gap metabolic acidosis (Acute) Elevated LFTs (Acute) Hyperbilirubinemia (Acute) Nausea & vomiting (Acute) Social History Smoking/Tobacco Use Status: Never Smoking risk assessment performed?: Yes Alcohol Intake: never Time Spent with Patient Time Spent with Patient: >85 minutes Time was spent: preparing to see the patient(eg.review tests), obtaining and/or reviewing separately otained hiistory, ordering medications,tests, procedures, referring, communicating with other health palliative care coordinator, indepentently interpreting results, counseling the patient, care coordination and other
--- NOTE | 2025-03-19 11:59 | CMDISCH_ITS ---
Date of service: 03/19/25 Time of Service: 11:59 LACE Index Scoring Tool Questions: Length of Stay (in days): 2 Was the patient admitted via the E.D.?: Yes Comorbidities: Any Tumor and Liver or Renal Disease E.D. Visits: 1 Answers: Total Score: 11 Risk of Readmission: High Risk Care Management Discharge Plan Reason for Hospitalization: seizures Discharge Plan: Mae will be discharged home with new home health services for RN and PT. He will follow up with his Oncologist, PCP and plan of care and transport with family. Patient/Family Education Needs: Review discharge instructions, limitations, fol low up plan and discuss Ask Me Three Services Needed at Discharge: Home Health Care Services SDOH Health Related Social Needs: Health related social needs daily activities education Health related social needs details N/A Health related social needs details: N/A
--- NOTE | 2025-03-19 12:55 | PDOC.HHF2F_ITS ---
Date of service: 03/19/25 Time of Service: 12:55 Home Health Referral Home Health Orders Clinical synopsis of why skilled professionals are needed: 59 year old man with a past medical history of seizure post TBI, tonsillar cancer, hypertension presenting March 16 with convulsions he describes as tonic-clonic seizures, as well as spasming pain from his active tonsillar cancer, and nausea/vomiting. PEG tube in place to assist with nutrition but the patient can o swallow water and pills and some soft foods. [place] [facility] [place] malnutrition, duodenitis, possible refeeding syndrome; his convulsions were diagnosed as psychogenic nonepileptic seizures as per EEG without AED on discharge. 2 episodes of mftox-qzajtp-caazfnqiv convulsions witnessed in the ED with negative work-up as per EKG , CXR, head CT and CT abdomen pelvis showing PEG in place. He was given ondansetron, hydromorphone, levetiracetam, NS 500 ml bolus, famotidine, magnesium, lorazepam, oxycodone, pregabalin and admitted to the hospitalist service to the medical surgical floor for ongoing evaluation and management. Wellbutrin recently started was held d/t potentially lower seizure threshold. Due to ongoing report of pain with flushing of PEG-tube, a surgical consult was ordered. PEG tube: Balloon placement rectified by Dr. Jane from surgery with imaging confirming placement and balloon inflation; home gastric tube feeding formula well tolerated overnight. Proton pump inhibitor and sucralfate initiated d/t history of gastric ulcer findings during [place] 09[place] [facility] [place] Resume gastric tube feeding as prior to arrival, an follow-up with your outpatient nutrition provider. Seen by palliative care with plan to continue to follow outpatient to discuss AD ; opioid medicine and lorazepam adjusted as per recommendations and morphine mmEq/ 24 hours. The patient is hemodynamically stable, no ectopy on telemetry,no tonic-clonic seizures since admission, afebrile and will be discharged home today with home health physical therapy and nursing. Follow up with PCP within 7 days of discharge and continue to follow-up as plan with neurology and oncology. You mentioned been on Topiramate at home; recommendation to continue your home dose topiramate as per your outpatient provider latest orders. Discussed with Dr. Salazar Registered Nurse: Check all that apply Assess for exacerbation of medical condition, instruct patient/caregivers on signs and symptoms to report for early detection: Ordered Physical Therapist: Check all that apply Increase strength & endurance for safe mobility at home: Ordered To design/establish home maintenance program: Ordered Fall reduction therapy program for patient with history of frequent falls: Ordered Home safety evaluation and teaching/gait training including stair management (if applicable): Ordered Home Bound Status Describe why leaving home would require a considerable and taxing effort: Requires frequent rest periods Encounter Date and Reason: I certify that a FTF encounter for this patient was performed on March 19, 2025 and that such encounter was related to the primary reason the patient requires home health services. The encounter was conducted in the following manner: * By me as the certifying physician, NURSING CONSULTANT, PA or * By an inpatient physician, NURSING CONSULTANT or PA during an inpatient stay who communicated findings to me, Certification And Authentication I certify that I composed the above information based on my clinical judgment relating to this patient's medical condition and, if applicable, clinical findings communicated to me by the NPP or inpatient physician who performed the FTF encounter. Name of Provider that will be monitoring home health services: Asif Gomez
[2025-03-19 13:31] VITALS: BP 115/66; PULSE 92; RESP 18; O2SAT 97
[2025-03-19] MEDS: LORazepam 20 MG/10 ML VIAL (13:31)
[2025-03-19 13:37] VITALS: BP 109/56; PULSE 92; O2SAT 97
== END 2025-03-19 15:41 | disposition home health service (06) | DRG 100 ==
LOC: ER 16:47 → MS 18:32
PROVIDERS: Admitting Provider Family Medicine; Emergency Provider Emergency Medicine; Responsible Provider Nurse Practitioner Acute Care; Visit Provider Family Medicine
DX: R56.9 Unspecified convulsions (principal); E43 Unspecified severe protein-calorie malnutrition; E87.1 Hypo-osmolality and hyponatremia; E87.20 Acidosis, unspecified; R11.2 Nausea with vomiting, unspecified; E83.42 Hypomagnesemia; Z93.1 Gastrostomy status; R19.7 Diarrhea, unspecified; G89.3 Neoplasm related pain (acute) (chronic); Z79.899 Other long term (current) drug therapy; R74.01 Elevation of levels of liver transaminase levels; I10 Essential (primary) hypertension; E78.5 Hyperlipidemia, unspecified; K25.9 Gastric ulcer, unspecified as acute or chronic, without hemorrhage or perforation; Z87.820 Personal history of traumatic brain injury; S06.89AS Other specified intracranial injury with loss of consciousness status unknown, sequela; W11.XXXS Fall on and from ladder, sequela; Z68.23 Body mass index [BMI] 23.0-23.9, adult; C09.9 Malignant neoplasm of tonsil, unspecified; G43.909 Migraine, unspecified, not intractable, without status migrainosus; F41.9 Anxiety disorder, unspecified; F32.A Depression, unspecified; G47.00 Insomnia, unspecified; K21.9 Gastro-esophageal reflux disease without esophagitis; J45.909 Unspecified asthma, uncomplicated; Z73.89 Other problems related to life management difficulty
CPT/HCPCS: 00123; 36415; 80048; 80053; 80061; 83690; 85027; 86850; 86900; 86901; 93005; 96361; 96365; 96366; 96367; 96375; 96376; 97116; 97162; 97530; 99285; 70470; 71046; 74018; 74177; 83735; 84100; 84484; 85025; 85610; 93010; 99222; 99233; 99238; J1171; J1953; J2060; J2405; J2470; J3475; J3490

== ENCOUNTER 2025-04-27 03:26 | Outpatient (RCR) | payer MEDICAID, SELFPAY ==
[2025-04-06] MEDS: Normal Saline Flush 10 ML SYR IVP (10:19)
[2025-04-06 10:37] LABS: Abs Immature Grans 0.02 10^3/uL (0.0-0.06); HCT 35.6 % (40.0-50.0); HGB 11.6 g/dL (13.5-17.5); Immature Grans % 0.4 %; MCH 30.7 pg (27.0-33.0); MCHC 32.6 % (32.0-36.0); MCV 94 fL (80-95); MPV 12.1 fL (8.0-11.0); Platelet Count 220 10^3/uL (130-400); RBC 3.78 10^6/uL (4.36-5.78); RDW 17.2 % (11.8-14.1); RDW-SD 59.7 fL; WBC 4.89 10^3/uL (4.4-10.8)
[2025-04-06 11:13] LABS: ALT 79 U/L (16-63); AST 32 U/L (15-37); Albumin 3.5 g/dL (3.4-5.0); Alkaline Phosphatase 144 U/L (46-116); Anion Gap 9.9 mmol/L (3-11); BUN 11 mg/dL (7-18); Bilirubin, Total 0.7 mg/dL (0.2-1.0); CO2 26.1 mmol/L (21.0-32.0); Calcium 9.2 mg/dL (8.5-10.1); Chloride 103 mmol/L (98-107); Estimated GFR 78.30 (mL/min/1.73m2); Glucose 203 mg/dL (74-106); Magnesium 1.7 mg/dL (1.8-2.4); Potassium 3.9 mmol/L (3.5-5.1); Sodium 139 mmol/L (136-145); Total Protein 7.1 g/dL (6.4-8.2)
[2025-04-27] MEDS: Normal Saline Flush 10 ML SYR IVP (11:24)
[2025-04-27 11:41] LABS: Abs Immature Grans 0.01 10^3/uL (0.0-0.06); HCT 35.4 % (40.0-50.0); HGB 11.8 g/dL (13.5-17.5); Immature Grans % 0.3 %; MCH 30.6 pg (27.0-33.0); MCHC 33.3 % (32.0-36.0); MCV 92 fL (80-95); MPV 11.6 fL (8.0-11.0); Platelet Count 145 10^3/uL (130-400); RBC 3.85 10^6/uL (4.36-5.78); RDW 14.0 % (11.8-14.1); RDW-SD 47.4 fL; WBC 3.60 10^3/uL (4.4-10.8)
[2025-04-27 12:02] LABS: Magnesium 1.6 mg/dL (1.6-2.6)
[2025-04-27 12:04] LABS: ALT 27 U/L (10-49); AST 22 U/L (<34); Albumin 4.2 g/dL (3.4-5.0); Alkaline Phosphatase 129 U/L (46-116); Anion Gap 11.2 mmol/L (3-11); BUN 8 mg/dL (9-23); Bilirubin, Total 0.60 mg/dL (0.2-1.2); CO2 23.8 mmol/L (20.0-31.0); Calcium 9.2 mg/dL (8.3-10.6); Chloride 104 mmol/L (98-107); Glucose 163 mg/dL (74-106); Potassium 3.6 mmol/L (3.5-5.1); Sodium 139 mmol/L (136-145); Total Protein 6.6 g/dL (5.7-8.2)
== END 2025-05-03 23:59 | disposition home or self-care (01) ==
LOC: INF 03:26
PROVIDERS: Visit Provider Nurse Practitioner
DX: Z45.2 Encounter for adjustment and management of vascular access device (principal); C09.9 Malignant neoplasm of tonsil, unspecified
CPT/HCPCS: 36591; 80053; 83735; 85025